=== PATIENT | male | born 1955 | race Caucasian/White ===

== ENCOUNTER 2024-07-20 09:13 | Inpatient (IN) | payer MEDICARE, SELFPAY ==
[2024-07-20] VITALS (44 sets, daily range): BP systolic 86–137; BP diastolic 45–96; PULSE 72–122; RESP 12–51; TEMP 35.8–36.8; O2SAT 86–100; BMI 34.5; BMI 34.0
--- NOTE | 2024-07-20 09:15 | EKG12_ITS ---
Test Reason : SOB Blood Pressure : / mmHG Vent. Rate : 126 BPM Atrial Rate : 000 BPM P-R Int : 000 ms QRS Dur : 092 ms QT Int : 340 ms P-R-T Axes : 000 083 043 degrees QTc Int : 492 ms NSR WITH FREQUENT PAC'S Reconfirmed by Isai Menon ([id number]), editorial cartoonist VELMA RODRIGUEZ ([id number]) on 07/25/2024 8:18:40 AM Referred By: Confirmed By:Isai Menon
[2024-07-20 09:29] LABS: Absolute Lymphocyte Count 1.43 X10^3/uL (0.83-4.51); Absolute Neutrophil Count 4.7 X10^3/uL (2.0-7.7); Basophil# 0.04 X10^3/uL; Basophil% 0.6 % (0-1); Eosinophil# 0.17 X10^3/uL; Eosinophils% 2.6 % (0-5); Hematocrit 40.8 % (40-54); Hemoglobin 13.2 g/dL (13.0-16.5); Lymphocyte # 1.43 X10^3/ul (0.83-4.51); Lymphocyte % 21.5 % (19-41); Mean Corp Hgb Conc 32.4 g/dL (32-36); Mean Corpuscular Hgb 30.4 pg (27.0-32.0); Mean Platelet Vol. 9.5 fl (6.2-12.0); Monocyte# 0.29 X10^3/uL; Monocyte% 4.4 % (0-10); NRBC Flagged by Analyzer 0 % (0-5); Neutrophil # 4.71 X10^3/uL (2.7-7.7); Neutrophil % 70.6 % (47-70); Platelet Count 220 K/mm3 (150-450); RBC Distribution Width CV 15.4 % (11.6-14.6); RBC Distribution Width SD 53.7 fl (35.1-43.9); Red Blood Count 4.34 M/mm3 (4.6-6.2); White Blood Count 6.7 K/mm3 (4.4-11.0)
--- NOTE | 2024-07-20 09:35 | RAD_ITS ---
INDICATION: chest pain EXAMINATION/TECHNIQUE: X-RAY - XR Chest 1 View COMPARISON: No relevant prior comparison study available FINDINGS: LINES/DEVICES: None. LUNGS: No consolidation, edema or effusion. No pneumothorax. MEDIASTINUM AND CARDIOVASCULAR STRUCTURES: Cardiac silhouette not enlarged. Central airways and mediastinal contour are unremarkable. BONES AND SOFT TISSUES: Unremarkable. RAD/Chest 1 View (Portable) IMPRESSION: No radiographic evidence of acute cardiopulmonary disease. Electronically Signed: David Coughlin MD at 10:09 EDT ,
--- NOTE | 2024-07-20 09:35 | EX.ED.DYSGE1 ---
HPI History of Present Illness Chief Complaint: Syncope Detail of Chief Complaint: Shortness of breath for 2 weeks. No cardiac history. Informant: patient Onset/Context/Timing Onset: Weeks Context: Gradual Onset Timing: Continuous Current Severity: Mild Maximum Severity: Moderate Narrative Narrative: 69-year-old male history of hypertension diabetes. States he had his Ozempic dose increased couple weeks ago. Since that time has been short of breath. Denies any chest pain or cardiac history. Denies any vomiting, diarrhea or fever. No cough. No recent travel or surgery. No history of DVT or PE. No recent hospitalization. Prior similar symptoms: No Recent Illness/Hospitalization: No PFSH PFS Medical History Tonsillectomy planned Enlarged prostate High cholesterol Smoker Diabetes Home Medications ?Medication ?Instructions ?Recorded ?Last Taken ?Type finasteride 5 mg tablet 5 mg PO DAILY 07/20/24 07/20/24 History glipizide 5 mg tablet 5 mg PO BID 07/20/24 07/19/24 History lisinopril 2.5 mg tablet 2.5 mg PO DAILY 07/20/24 07/20/24 History pioglitazone 45 mg tablet 45 mg PO DAILY 07/20/24 07/19/24 History semaglutide 2 mg/dose (8 mg/3 mL) 2 mg subcut QWEEK 07/20/24 07/14/24 History subcutaneous pen injector (Ozempic) simvastatin 40 mg tablet 40 mg PO QPM cholesterol 07/20/24 07/19/24 History tamsulosin 0.4 mg capsule 0.4 mg PO QHS 07/20/24 07/19/24 History Allergy/AdvReac Type Severity Reaction Status Date / Time No Known Allergies Allergy Verified 07/20/24 09:24 Social History Smoking Status: Current every day smoker tobacco type: cigarettes ROS ROS ED ROS Narrative Shortness of breath. Constitutional Constitutional ED: Denies chills or fever(s) Eyes Eyes: Denies blurry vision ENT ENT ED: Denies ear pain Cardiovascular Cardiovascular: Denies chest pain Respiratory/Chest Respiratory/Chest: Reports dyspnea and dyspnea on exertion; Denies cough Gastrointestinal Gastrointestinal: Denies abdominal pain, constipation, diarrhea, melena, nausea or vomiting Genitourinary Genitourinary ED: Denies dysuria or hematuria Musculoskeletal Musculoskeletal: Denies arthralgias or back pain Integumentary Denies abscess Neurologic Neurologic: Denies headache(s) Psychiatric Psychiatric: Denies anxiety Endocrine Endocrinology: Denies cold intolerance Hematologic/Lymphatic Hematologic/Lymphatic: Reports none Allergic/Immunologic Allergic/Immunologic ED: Denies mouth swelling, tongue swelling or urticaria EXAM Physical Exam Narrative Exam Narrative: 69-year-old male vital signs tachycardic 120s with A-fib RVR in the monitor. Pulse ox 95%. Afebrile. Blood pressure stable. H EENT exam unremarkable. Neck nontender. No JVD. Diminished breath sounds in the bases bilaterally. Heart A-fib RVR 125. Chest wall nontender. Abdomen soft nontender. Moving all 4 extremities. Normal strength. He does have trace edema both lower extremities. States that is new. Back nontender. Neurologically is awake and alert answering questions following commands. No focal motor deficits. Const Vital Signs: 07/20/24 09:14 07/20/24 09:18 07/20/24 09:18 Temperature 97.7 F L 97.7 F L Temperature Source Temporal Temporal Pulse Rate 118 H 122 H Respiratory Rate 32 H 24 H Respiratory Effort Respiratory Pattern Blood Pressure 125/96 H 125/96 H Blood Pressure Mean 105 105 Pulse Ox 95 95 Oxygen Delivery Method Room Air Room Air Room Air 07/20/24 09:46 Temperature Temperature Source Pulse Rate Respiratory Rate Respiratory Effort Short of Breath Labored Respiratory Pattern Tachypnea Blood Pressure Blood Pressure Mean Pulse Ox Oxygen Delivery Method Positive well nourished and well developed; Negative for cachectic, contractures or unkempt General Appearance ED: well developed; Negative for unkempt, cachectic, contractures, cyanotic, diaphoretic, NAD or pallor Nutritional Appearance: Negative for cachectic HEENT Reports moist mucous membranes Negative for trauma or tenderness Eyes EOMs intact bilaterally General Eye ED: Negative for pale conjunctiva or scleral icterus Neck no lymphadenopathy, supple and no JVD General: Negative for tenderness Chest Wall inspection of chest normal and palpation of chest normal Resp normal respiratory effort and No clear to auscultation bilaterally Resp Narrative: Diminished in the bases. Cardio Negative for regular rate or regular rhythm Rhythm: abnormal rhythm irregularly irregular and other (A-fib RVR rate about 125.) GI normal to inspection, nondistended, normoactive bowel sounds, non-tender, non-distended and no masses Back/Spine no CVA tenderness General Back: Negative for CVA tenderness Cervical Spine: Negative for cervical spine tenderness Thoracic Spine / Upper Back: Negative for thoracic spinal tenderness or paraspinal muscle tenderness Lumbar Spine / Lower Back: Negative for lumbar spinal tenderness Extremity Negative for normal to inspection General Extremety ED: Yes edema; Negative for tenderness General Extremity: edema Neuro oriented x3 and CN's II-XII intact bilaterally Sensorium / Orientation: alert; Negative for orientation impaired, lethargic or stuporous Motor Exam: strength 5/5 throughout; Negative for general weakness Psych mental status grossly normal Appearance: Negative for unkempt Attitude: No agitated Mood & Affect: Negative for depressed, anxious or tearful Skin no rashes or lesions noted and no wounds General Skin Exam: Negative for jaundice or pallor Lesions: No lesion noted Rashes: No rashes noted MDM MDM MDM Narrative Medical decision making narrative: 69-year-old male with what appears to be A-fib RVR which is new on exam. Discussed trace edema in his lower extremities. Rule out CHF. Undergo cardiac workup. Received Cardizem will need to be admitted. Repeat exam at 10:24 AM no significant change. He was initially given a dose of Cardizem without any significant change. We placed on a Cardizem drip. Currently he is in A-fib RVR between 115 and 130. Patient I discussed his test results and diagnosis he is willing to be admitted to the hospital. Hospitalist on page. Lab Data Attestation: I reviewed the patient's lab results. Lab results narrative: CBC shows white count 6 H&H 13 and 40. Platelets 220. PT/INR 13 and 1. PTT of 30. Electrolytes 135. Gap 6. BUN and creatinine 24 and 1.89. Glucose 168. Troponin 51. TSH 1.3. Chest x-ray has chronic changes. Vascular congestion. Labs: Laboratory Results - last 24 hr 07/20/24 09:20 WBC 6.7 RBC 4.34 L Hgb 13.2 Hct 40.8 MCV 94.0 MCH 30.4 MCHC 32.4 RDW Std Deviation 53.7 H RDW Coeff of Louise 15.4 H Plt Count 220 MPV 9.5 Immature Gran % (Auto) 0.300 Neut % (Auto) 70.6 H Lymph % (Auto) 21.5 Conway % (Auto) 4.4 Eos % (Auto) 2.6 Baso % (Auto) 0.6 Absolute Neuts (auto) 4.7 Absolute Lymphs (auto) 1.43 Nucleated RBC % 0 PT 13.5 INR 1.0 APTT 30.6 Sodium 135 L Potassium 3.7 Chloride 104 Carbon Dioxide 25.0 Anion Gap 6 BUN 24 H Creatinine 1.89 H Estim Creat Clear Calc 40.39 Est GFR (MDRD) Af Amer 45 L Est GFR (MDRD) Non-Af 38 L BUN/Creatinine Ratio 12.7 Glucose 168 H Calcium 9.1 Troponin I High Sens 51 TSH 1.300 Radiography Chest X-Ray - ED: 1 View, Read by ED Physician, Read by Radiologist, Heart, Mediastinum, Bony Structures, Chronic Changes and CHF Diagnostic Testing: Clinical Impression(s) from Imaging Studies Chest X-Ray 07/20/24 09:35 IMPRESSION: No radiographic evidence of acute cardiopulmonary disease. Electronically Signed: David Coughlin MD at 10:09 EDT , Chest x-ray, portable, single view interpreted both by myself and radiologist. Patient has normal cardiac silhouette. He does have vascular congestion is could be early pulmonary edema from his A-fib RVR. No infiltrate. No effusion. Rhythm Strip Rhythm Strip: A-fib Rate: 126 Ectopy: None EKG Initial EKG: Attestation: I personally reviewed and interpreted this EKG as follows: Interpretation: Atrial Fibrillation Comments: Atrial fibrillation with rapid ventricular rate of 126. No acute signs of ND or ischemia. Discharge Plan Dx/Rx/DC Orders Clinical Impression: Acute dyspnea, Atrial fibrillation with rapid ventricular response, Mild peripheral edema, New onset a-fib Disposition Disposition: Acute Care [facility]
[2024-07-20] MEDS: dilTIAZem 25 MG/5 ML Vial 20 MG IV BOLUS (09:44)
[2024-07-20 09:52] LABS: Anion Gap 6 (5-15); BUN 24 mg/dL (7-18); BUN/Creat Ratio 12.7 RATIO (10-20); Calcium,Total 9.1 mg/dL (8.5-10.1); Chloride 104 mmol/L (98-107); Creatinine, Serum 1.89 mg/dL (0.70-1.30); EST Glomerular Filtration Rate 38 mL/min (>60); Est Glom Filt Rate - Afr Amer 45 mL/min (>60); Estimated Creatinine Clearance 40.39 ml/min; Glucose 168 mg/dL (74-106); Potassium 3.7 mmol/L (3.5-5.1); Sodium Level 135 mmol/L (136-145); Troponin-I HS 51 pg/mL (3.0-78.0)
[2024-07-20 09:54] LABS: Partial Thromboplast Time 30.6 Seconds (24.1-36.2); Prothrombin Time (Protime)PT. 13.5 SECONDS (11.7-14.9)
[2024-07-20] MEDS: Diltiazem 125 MG in Dextrose 5%-Water (100mL Bag) 100 ML IV (10:43)
--- NOTE | 2024-07-20 12:17 | EKG12_ITS ---
Test Reason : AFIB Blood Pressure : / mmHG Vent. Rate : 101 BPM Atrial Rate : 000 BPM P-R Int : 000 ms QRS Dur : 092 ms QT Int : 368 ms P-R-T Axes : 000 092 083 degrees QTc Int : 477 ms NSR WITH FREQUENT PAC'S Reconfirmed by Isai Menon ([id number]), subeditor VELMA RODRIGUEZ ([id number]) on 07/25/2024 8:19:16 AM Referred By: Confirmed By:Isai Menon
--- NOTE | 2024-07-20 12:17 | ECHOD_ITS ---
Reason For Study: ATRIAL FIBRILLATION Procedure This was a 2D Doppler, Color Flow transthoracic echocardiogram. The study was technically difficult. Contrast injection was performed. Exam performed portable in patient room. Left Ventricle Normal LV size. The left ventricular ejection fraction is 30 %. No regional wall motion abnormalities noted. There is moderate global hypokinesis of the left ventricle. Right Ventricle Normal RV size. Normal systolic function. Atria Normal left atrium. Normal right atrium. Mitral Valve Normal mitral valve. Tricuspid Valve Normal tricuspid valve. Aortic Valve Trisinus/trileaflet aortic valve. Moderate focal aortic valve calcification. Peak aortic valve gradient 44 mmHg. Mean aortic valve gradient 28 mmHg. Moderate aortic stenosis. Pulmonic Valve The pulmonic valve is not well visualized. Great Vessels Normal aortic root. The pulmonary artery is normal size. The inferior vena cava is dilated. Pericardium/Pleural No pericardial effusion. Medication Diluted definity 2ml given slow IV push to enhance endocardial definition. MMode/2D Measurements & Calculations LVIDd: 5.5 cm IVSd: 1.2 cm LVOT diam: 2.1 cm LVIDs: 4.5 cm LVPWd: 1.1 cm RVDd: 4.0 cm FS: 18.7 % LVOT area: 3.6 cm2 asc Aorta Diam: 3.2 cm LAV(MOD-bp): 59.9 ml LVAd ap4: 46.5 cm2 LAV(MOD-bp) Indexed: 28.6 ml/m2 LVLd ap4: 9.5 cm LAV(MOD-sp2): 65.6 ml EDV(MOD-sp4): 183.4 ml LAV(MOD-sp4): 51.6 ml EDV(sp4-el): 193.5 ml LVAs ap4: 37.8 cm2 LVLs ap4: 8.8 cm ESV(MOD-sp4): 132.9 ml ESV(sp4-el): 138.8 ml EF(MOD-sp4): 27.5 % EF(sp4-el): 28.3 % LVAd ap2: 50.6 cm2 SV(MOD-sp4): 50.5 ml SV(MOD-sp2): 84.0 ml LVLd ap2: 9.6 cm EDV(MOD-sp2): 219.9 ml EDV(sp2-el): 225.7 ml LVAs ap2: 38.5 cm2 LVLs ap2: 8.8 cm ESV(MOD-sp2): 136.0 ml ESV(sp2-el): 143.0 ml EF(MOD-sp2): 38.2 % SV(sp4-el): 54.7 ml Ao sinus diam: 3.[address] Junction: 2.8 cm LA dimension(2D): 4.1 cm LA A4 area: 19.0 cm2 RA A4 area: 16.2 cm2 TAPSE: 1.7 cm Time Measurements MV dec time: 0.16 sec Doppler Measurements & Calculations MV E max daniel: 125.7 cm/sec Lat Peak E' Daniel: 10.2 cm/sec Med Peak E' Daniel: 5.0 cm/sec E/E' lat: 12.3 E/E' med: 25.1 MV V2 max: 125.3 cm/sec Ao V2 max: 332.0 cm/sec LV V1 max: 86.3 cm/sec MV max P.4 mmHg Ao max P.4 mmHg LV V1 max P.0 mmHg MV V2 mean: 75.0 cm/sec Ao V2 mean: 256.1 cm/sec LV V1 mean P.7 mmHg MV mean P.7 mmHg Ao mean P.1 mmHg LV V1 mean: 63.3 cm/sec MV V2 VTI: 36.5 cm Ao V2 VTI: 70.6 cm LV V1 VTI: 17.6 cm MVA(VTI): 1.7 cm2 AV (velocity ratio): 0.25 [place](I,D): 0.90 cm2 [place](V,D): 0.94 cm2 SV(LVOT): 63.7 ml PA V2 max: 84.0 cm/sec PA max PG (full): 1.4 mmHg ECHO/Echo Complete W/ Contrast Interpretation Summary The left ventricular ejection fraction is 30 %. Normal LV size. There is moderate global hypokinesis of the left ventricle. Mean aortic valve gradient 28 mmHg. Moderate aortic stenosis. Contrast injection was performed. Ordering Physician: Tucker Cowan Performed By: Lucy Graves RDCS
[2024-07-20 13:35] LABS: Troponin-I HS 53 pg/mL (3.0-78.0)
[2024-07-20] MEDS: Insulin Lispro 100 UNIT/ML INSULN.PEN SC ×2 (13:51→17:14)
[2024-07-20] MEDS: Metoprolol Tartrate 50 MG Tablet PO (13:52)
[2024-07-20] MEDS: HEPARIN/D5w 25,000 UNITS 25,000 UNITS/250 ML IV.SOLN. 14 UNITS CONT INF (13:53)
[2024-07-20] MEDS: Heparin Injection (Vial) 5,000 UNIT/ML VIAL 7500 UNIT IV (14:02)
[2024-07-20 14:31] LABS: Bedside Glucose 164 mg/dL (74-106)
--- NOTE | 2024-07-20 14:31 | HP.PCM.HOS_ITS ---
HPI - General General Date of Admission: 07/20/24 Date of Service: 07/20/24 Chief Complaint: Shortness of breath HPI Narrative KITA CARTY, is a 69 M who presents with a 2-week history of shortness of breath. Had increased his Ozempic at that time and had noticed that he has become more short of breath. He presented to the emergency room was noted to be in atrial fibrillation with RVR. EKG confirmed A-fib with RVR. Patient received bolus of diltiazem 20 mg and then started on diltiazem drip. Patient has never had atrial fibrillation before. [facility] Medical History Tonsillectomy planned Enlarged prostate High cholesterol Smoker Diabetes Home Medications ?Medication ?Instructions ?Recorded ?Last Taken ?Type finasteride 5 mg tablet 5 mg PO DAILY 07/20/24 07/20/24 History glipizide 5 mg tablet 5 mg PO BID 07/20/24 07/19/24 History lisinopril 2.5 mg tablet 2.5 mg PO DAILY 07/20/24 07/20/24 History pioglitazone 45 mg tablet 45 mg PO DAILY 07/20/24 07/19/24 History semaglutide 2 mg/dose (8 mg/3 mL) 2 mg subcut QWEEK 07/20/24 07/14/24 History subcutaneous pen injector (Ozempic) simvastatin 40 mg tablet 40 mg PO QPM cholesterol 07/20/24 07/19/24 History tamsulosin 0.4 mg capsule 0.4 mg PO QHS 07/20/24 07/19/24 History Allergy/AdvReac Type Severity Reaction Status Date / Time No Known Allergies Allergy Verified 07/20/24 09:24 Family History (Updated 07/20/24 @ 14:[address] 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 Vital Signs Vital Signs Vital Signs: 07/20/24 09:14 07/20/24 09:18 07/20/24 09:18 Temperature 36.5 C L 36.5 C L Temperature Source Temporal Temporal Pulse Rate 118 H 122 H Respiratory Rate 32 H 24 H Respiratory Effort Respiratory Depth Respiratory Pattern Blood Pressure 125/96 H 125/96 H Blood Pressure Mean 105 105 Blood Pressure Source Blood Pressure Position Blood Pressure Location Pulse Ox 95 95 Oxygen Delivery Method Room Air Room Air Room Air Oxygen Flow Rate (L/min) 07/20/24 09:46 07/20/24 10:18 07/20/24 10:43 Temperature 36.4 C L 36.4 C L Temperature Source Oral Oral Pulse Rate 107 H 108 H Respiratory Rate 22 H 26 H Respiratory Effort Short of Breath Labored Respiratory Depth Respiratory Pattern Tachypnea Blood Pressure 114/71 107/79 Blood Pressure Mean 85 88 Blood Pressure Source Monitor Blood Pressure Position Sitting Blood Pressure Location Left Arm Pulse Ox 94 94 Oxygen Delivery Method Room Air Room Air Oxygen Flow Rate (L/min) 07/20/24 11:09 07/20/24 11:11 07/20/24 11:20 Temperature 36.4 C L 36.4 C L 36.4 C L Temperature Source Oral Oral Pulse Rate 111 H 111 H 97 Respiratory Rate 26 H 26 H 18 Respiratory Effort Respiratory Depth Respiratory Pattern Blood Pressure 115/89 H 115/89 H 110/49 L Blood Pressure Mean 97 97 69 Blood Pressure Source Monitor Blood Pressure Position Blood Pressure Location Pulse Ox 93 93 93 Oxygen Delivery Method Room Air Room Air Oxygen Flow Rate (L/min) 07/20/24 12:29 07/20/24 12:45 07/20/24 13:00 Temperature 36.6 C Temperature Source Oral Pulse Rate 110 H 96 Respiratory Rate 28 H 25 H Respiratory Effort Short of Breath Respiratory Depth Normal Respiratory Pattern Tachypnea Blood Pressure 119/53 L 103/62 Blood Pressure Mean 75 75 Blood Pressure Source Monitor Blood Pressure Position Semi-Fowlers Semi-Fowlers Blood Pressure Location Left Forearm Right Arm Pulse Ox 86 87 Oxygen Delivery Method Room Air Room Air Room Air Oxygen Flow Rate (L/min) 07/20/24 13:15 07/20/24 13:30 07/20/24 13:35 Temperature Temperature Source Pulse Rate 91 98 Respiratory Rate 19 H 32 H Respiratory Effort Respiratory Depth Respiratory Pattern Blood Pressure 104/57 L 109/53 L Blood Pressure Mean 72 71 Blood Pressure Source Monitor Monitor Blood Pressure Position Semi-Fowlers Semi-Fowlers Blood Pressure Location Right Arm Right Arm Pulse Ox 88 90 87 Oxygen Delivery Method Nasal Cannula Nasal Cannula Nasal Cannula Oxygen Flow Rate (L/min) 2 3 3 07/20/24 13:49 07/20/24 13:52 07/20/24 13:56 Temperature Temperature Source Pulse Rate 109 H Respiratory Rate 22 H Respiratory Effort Respiratory Depth Respiratory Pattern Blood Pressure Blood Pressure Mean Blood Pressure Source Blood Pressure Position Blood Pressure Location Pulse Ox 92 89 Oxygen Delivery Method Nasal Cannula Nasal Cannula Oxygen Flow Rate (L/min) 4 5 07/20/24 14:00 Temperature Temperature Source Pulse Rate 96 Respiratory Rate 31 H Respiratory Effort Respiratory Depth Respiratory Pattern Blood Pressure 105/45 L Blood Pressure Mean 65 Blood Pressure Source Monitor Blood Pressure Position Semi-Fowlers Blood Pressure Location Right Arm Pulse Ox 88 Oxygen Delivery Method Nasal Cannula Oxygen Flow Rate (L/min) 5 Weight Weight: 98.7 kg Body Mass Index (BMI) 34.0 Physical Exam Const alert and no apparent distress HEENT head/scalp atraumatic Eyes Eyes Narrative: No icterus Neck no lymphadenopathy Neck Narrative: No thyromegaly Resp normal respiratory effort, no retractions, no use of accessory muscles and clear to auscultation bilaterally Cardio Cardio Narrative: Irregularly irregular GI normal to inspection, nondistended, normoactive bowel sounds, soft to palpation, non-tender and non-distended Extremity normal to inspection and full ROM Neuro moves all extremities and no focal motor deficits Sensorium / Orientation: awake and alert Psych affect normal Results Lab / Micro Data Attestation: I reviewed the patient's lab results. 07/20/24 09:20 07/20/24 09:20 Labs: Laboratory Results - last 24 hr 07/20/24 09:20: WBC 6.7, RBC 4.34 L, Hgb 13.2, Hct 40.8, MCV 94.0, MCH 30.4, MCHC 32.4, RDW Std Deviation 53.7 H, RDW Coeff of Louise 15.4 H, Plt Count 220, MPV 9.5, Immature Gran % (Auto) 0.300, Neut % (Auto) 70.6 H, Lymph % (Auto) 21.5, Coffey % (Auto) 4.4, Eos % (Auto) 2.6, Baso % (Auto) 0.6, Absolute Neuts (auto) 4.7, Absolute Lymphs (auto) 1.43, Nucleated RBC % 0, PT 13.5, INR 1.0, APTT 30.6, Sodium 135 L, Potassium 3.7, Chloride 104, Carbon Dioxide 25.0, Anion Gap 6, BUN 24 H, Creatinine 1.89 H, Estim Creat Clear Calc 40.39, Est GFR (MDRD) Af Amer 45 L, Est GFR (MDRD) Non-Af 38 L, BUN/Creatinine Ratio 12.7, Glucose 168 H, Calcium 9.1, Troponin I High Sens 51, TSH 1.300 07/20/24 13:03: Troponin I High Sens 53 Rhythm Strip Rhythm Strip: A-fib Rate: 126 Ectopy: None EKG Initial EKG: Attestation: I personally reviewed and interpreted this EKG as follows: Prior EKG tracings: available for review EKG Rhythm Intrepretation: Atrial Fibrillation Imaging Radiology Impression Chest X-Ray 07/20/24 09:35 IMPRESSION: No radiographic evidence of acute cardiopulmonary disease. Electronically Signed: David Coughlin MD at 10:09 EDT , Assessment & Plan Assessment/Plan (1) New onset a-fib: PLAN: Atrial fibrillation with RVR. New diagnosis of atrial fibrillation. Unknown time of onset but may have precipitated to couple weeks ago when his symptoms first began with shortness of breath. Patient was started on diltiazem drip in the emergency room. Will continue for now. Additionally we will start him on metoprolol tartrate 50 mg twice daily. His heart rate can be controlled, we can discontinue the diltiazem drip. [id number] 2. Will initiate heparin drip for now. Patient does have what may be chronic kidney disease so hold off on enoxaparin at this time. PLAN: Plan Chronic conditions * CKD 3: No prior baseline available. Will monitor for now. * Diabetes mellitus type 2: Hold Ozempic for now. Check an A1c. Sliding scale insulin. Continue glipizide and pioglitazone. * BPH: Continue tamsulosin and finasteride * Hyperlipidemia: Continue with simvastatin * Tobacco abuse: Smokes 2 packs/day. Patient advised that if he requires a patch, to inform us and then we can order it for him. VTE prophylaxis: Not indicated as patient is anticoagulated CODE STATUS: Addressed with the patient. Patient wishes to be full code. Charges/Coding Visit Charges Inpatient E&M: 47559 Init Hosp L3
[2024-07-20 15:51] LABS: Hemoglobin A1c 6.7 % (3.8-5.6)
[2024-07-20 16:17] LABS: Troponin-I HS 59 pg/mL (3.0-78.0)
[2024-07-20] MEDS: glipiZIDE 5 MG Tablet PO (17:15)
[2024-07-20 17:35] LABS: Bedside Glucose 152 mg/dL (74-106)
--- NOTE | 2024-07-20 17:56 | EKG12_ITS ---
Test Reason : SOB Blood Pressure : / mmHG Vent. Rate : 082 BPM Atrial Rate : 000 BPM P-R Int : 000 ms QRS Dur : 090 ms QT Int : 408 ms P-R-T Axes : 000 080 091 degrees QTc Int : 476 ms NSR WITH FREQUENT PAC'S Reconfirmed by Isai Menon ([id number]), editor managing director VELMA RODRIGUEZ ([id number]) on 07/25/2024 8:21:22 AM Referred By: HAYLEE Confirmed By:Isai Menon
[2024-07-20 20:37] LABS: Partial Thromboplast Time 76.7 Seconds (24.1-36.2)
--- NOTE | 2024-07-20 20:52 | SDCEKG_ITS ---
Test Reason : RYTHM CHANGE Blood Pressure : / mmHG Vent. Rate : 079 BPM Atrial Rate : 000 BPM P-R Int : 000 ms QRS Dur : 092 ms QT Int : 406 ms P-R-T Axes : 000 077 128 degrees QTc Int : 465 ms Normal sinus rhythm with frequent PAC's and occasional abberrent conduction Nonspecific T wave abnormality Prolonged QT Abnormal ECG When compared with ECG of 20-JUL-2024 14:02, MANUAL COMPARISON REQUIRED, DATA IS UNCONFIRMED Confirmed by Isai Menon ([id number]), news assignment editor SAVANNAH DE LA PAZ ([id number]) on 07/22/2024 1:35:00 PM Referred By: HANS Confirmed By:Isai Menon
--- NOTE | 2024-07-20 20:53 | RAD_ITS ---
STUDY: X-RAY CHEST REASON FOR EXAM: Male, 69 years old. increased shortness of breath TECHNIQUE: Single AP portable view of the chest. COMPARISON: 07/20/2024 FINDINGS: The lungs are clear and expanded. There is no demonstrated pleural abnormality. Normal size heart. Normal mediastinum and che. Normal visualized pulmonary arteries. Normal visualized aortic arch and descending thoracic aorta. Normal visualized thoracic spine. Normal visualized ribs, clavicles, and shoulders. There is no demonstrated abnormality of the visualized soft tissue structures of the upper abdomen. RAD/Chest 1 View (Portable) IMPRESSION: Normal x-ray examination of the chest. Electronically Signed: Ramsey Vines MD at 21:57 EDT ,
[2024-07-20 21:36] LABS: Allen Test Positive; Base Excess -5 mmol/L (-2 to +2); Bicarbonate 19.9 mmol/L (22-26); Blood Gas Specimen Type ART; Mode Not entered; O2 Delivery Device BiPAP; PO2 76 mmHG (75-100); SITE R Radial; SO2 95 % (95-99); Total Carbon Dioxide 21 mmol/L; pCO2 33.5 mmHg (35-45); pH 7.38 (7.35-7.45)
[2024-07-20 21:57] LABS: Bedside Glucose 177 mg/dL (74-106)
[2024-07-20 22:15] LABS: BNP,B-Type NATRIURETIC PEPTIDE 686.9 pg/mL (0-100)
[2024-07-20] MEDS: Digoxin 250 MCG/ML Ampul IV (22:44)
[2024-07-21] VITALS (13 sets, daily range): BP systolic 102–132; BP diastolic 55–98; PULSE 71–93; RESP 12–26; TEMP 35.8–36.8; O2SAT 95–100
[2024-07-21] MEDS: Furosemide 40 MG/4 ML Vial IV (00:32)
[2024-07-21] MEDS: 0.9% Saline Lock 10 ML Syringe IV (00:32)
[2024-07-21 03:42] LABS: Anion Gap 6 (5-15); BUN 28 mg/dL (7-18); BUN/Creat Ratio 14.6 RATIO (10-20); Calcium,Total 8.8 mg/dL (8.5-10.1); Chloride 106 mmol/L (98-107); Creatinine, Serum 1.92 mg/dL (0.70-1.30); EST Glomerular Filtration Rate 37 mL/min (>60); Est Glom Filt Rate - Afr Amer 45 mL/min (>60); Glucose 128 mg/dL (74-106); Potassium 4.1 mmol/L (3.5-5.1); Sodium Level 136 mmol/L (136-145)
[2024-07-21] MEDS: HEPARIN/D5w 25,000 UNITS 25,000 UNITS/250 ML IV.SOLN. 14 UNITS CONT INF ×2 (06:13→22:38)
[2024-07-21 06:28] LABS: Bedside Glucose 99 mg/dL (74-106)
--- NOTE | 2024-07-21 08:32 | PN.HOSP_ITS ---
Reason for Visit Reason for Visit: Diagnoses Unspecified atrial fibrillation (07/20/24) Subjective Subjective No chest pain. No SOB. Objective Data Objective Data Vital Signs: Vital Signs Temp Pulse Resp BP Pulse Ox O2 Del Method O2 Flow Rate 36.4 C L 86 18 119/60 100 Bi-pap 6 07/21/24 06:00 07/21/24 06:00 07/21/24 06:00 07/21/24 06:00 07/21/24 06:00 07/21/24 06:00 07/20/24 20:34 FiO2 40 07/21/24 06:00 Oxygen Flow Rate (L/min) 6 Oxygen Delivery Method Bi-pap Weight: 98.7 kg Body Mass Index (BMI) 34.0 Intake & Output: Intake and Output for Last 24 Hours 07/19/24 07/20/24 07/21/24 23:59 23:59 23:59 Intake Total 1040.60 / 1040.60 126.7 / 126.7 Output Total 400 / 575 1425 / 1425 Balance 640.60 / 465.60 -1298.3 / -1298.3 Lab / Micro Data 07/20/24 09:20 07/21/24 03:17 Labs: Laboratory Results - last 24 hr 07/20/24 09:20: WBC 6.7, RBC 4.34 L, Hgb 13.2, Hct 40.8, MCV 94.0, MCH 30.4, MCHC 32.4, RDW Std Deviation 53.7 H, RDW Coeff of Louise 15.4 H, Plt Count 220, MPV 9.5, Immature Gran % (Auto) 0.300, Neut % (Auto) 70.6 H, Lymph % (Auto) 21.5, Merrick % (Auto) 4.4, Eos % (Auto) 2.6, Baso % (Auto) 0.6, Absolute Neuts (auto) 4.7, Absolute Lymphs (auto) 1.43, Nucleated RBC % 0, PT 13.5, INR 1.0, APTT 30.6, Sodium 135 L, Potassium 3.7, Chloride 104, Carbon Dioxide 25.0, Anion Gap 6, BUN 24 H, Creatinine 1.89 H, Estim Creat Clear Calc 40.39, Est GFR (MDRD) Af Amer 45 L, Est GFR (MDRD) Non-Af 38 L, BUN/Creatinine Ratio 12.7, Glucose 168 H, Hemoglobin A1c 6.7 H, Calcium 9.1, Troponin I High Sens 51, TSH 1.300 07/20/24 13:03: Troponin I High Sens 53 07/20/24 13:34: POC Glucose 164 H 07/20/24 15:35: Troponin I High Sens 59 07/20/24 17:11: POC Glucose 152 H 07/20/24 20:11: APTT 76.7 H 07/20/24 20:49: POC Glucose 177 H 07/20/24 21:38: B-Natriuretic Peptide 686.9 H 07/21/24 03:17: APTT 68.0 H, Sodium 136, Potassium 4.1, Chloride 106, Carbon Dioxide 24.0, Anion Gap 6, BUN 28 H, Creatinine 1.92 H, Estim Creat Clear Calc 39.50, Est GFR (MDRD) Af Amer 45 L, Est GFR (MDRD) Non-Af 37 L, BUN/Creatinine Ratio 14.6, Glucose 128 H, Calcium 8.8 07/21/24 06:07: POC Glucose 99 ABG Data ABG results: ABG 07/20/24 21:31 Specimen Type ART Sample Site R Radial pH 7.38 Bicarbonate Actual 19.9 L Total CO2 21 Base Excess -5 L O2 Saturation 95 O2 % 40.0 ABG pCO2 33.5 L ABG pO2 76 Sebastián Test Positive O2 Delivery Device BiPAP Vent Mode Not entered Radiography Diagnostic Testing: Radiology Impression Chest X-Ray 07/20/24 09:35 IMPRESSION: No radiographic evidence of acute cardiopulmonary disease. Electronically Signed: David Coughlin MD at 10:09 EDT , Chest X-Ray 07/20/24 20:53 IMPRESSION: Normal x-ray examination of the chest. Electronically Signed: Ramsey Vines MD at 21:57 EDT , Rhythm Strip Rhythm Strip: A-fib Rate: 126 Ectopy: None Physical Exam Const alert and no apparent distress HEENT head/scalp atraumatic and moist oral mucous membranes Resp normal respiratory effort, no retractions, no use of accessory muscles and clear to auscultation bilaterally Cardio regular rate, regular rhythm, S1 normal heart sound and S2 normal heart sound GI normal to inspection, nondistended, normoactive bowel sounds, soft to palpation, non-tender and non-distended Extremity normal to inspection, full ROM and no clubbing, cyanosis or edema Neuro Sensorium / Orientation: awake and alert Assessment & Plan Assessment/Plan (1) New onset a-fib: PLAN: Atrial fibrillation with RVR. New diagnosis of atrial fibrillation. Unknown time of onset but may have precipitated to couple weeks ago when his symptoms first began with shortness of breath. Patient was started on diltiazem drip in the emergency room. Additionally we will start him on metoprolol tartrate 50 mg twice daily. [id number] 2. Will initiate heparin drip for now. Patient does have what may be chronic kidney disease so hold off on enoxaparin at this time. Diltiazem gtt discontinued. PLAN: Plan Chronic conditions * CKD 3: No prior baseline available. Will monitor for now. * Diabetes mellitus type 2: Hold Ozempic for now. Check an A1c. Sliding scale insulin. Continue glipizide and pioglitazone. * BPH: Continue tamsulosin and finasteride * Hyperlipidemia: Continue with simvastatin * Tobacco abuse: Smokes 2 packs/day. Patient advised that if he requires a patch, to inform us and then we can order it for him. VTE prophylaxis: Not indicated as patient is anticoagulated CODE STATUS: Addressed with the patient. Patient wishes to be full code. Disposition: pending echocardiogram. If unremarkable, could be discharged with outpt cardiology followup. Though if significantly reduced, may consider inpt cardiology evaluation. Charges/Coding Visit Charges Inpatient E&M: 99995 Subs Hosp L2
[2024-07-21] MEDS: Metoprolol Tartrate 50 MG Tablet PO ×2 (09:47→21:04)
[2024-07-21] MEDS: Finasteride 5 MG Tablet PO (09:47)
[2024-07-21 09:53] LABS: Partial Thromboplast Time 74.8 Seconds (24.1-36.2)
[2024-07-21] MEDS: Pioglitazone Hydrochloride 45 MG Tablet PO (11:46)
[2024-07-21 12:07] LABS: Bedside Glucose 138 mg/dL (74-106)
[2024-07-21] MEDS: glipiZIDE 5 MG Tablet PO (16:44)
[2024-07-21 17:12] LABS: Bedside Glucose 142 mg/dL (74-106)
--- NOTE | 2024-07-21 18:43 | NURSING ---
After being assisted to BSC by RECRUITMENT ASSISTANT pt c/o feeling SOB. SpO2 92% on 2L, RR 39, HR 120. Placed pt on bipap 22/07 @40%. HR down to 95, RR 29, SpO2 98% on bipap. Pt stated he is starting to feel less SOB. Encouraged pt to keep bipap on for a while and with sleep/naps.
[2024-07-21] MEDS: Tamsulosin HCl 0.4 MG Capsule PO (21:03)
[2024-07-21] MEDS: Atorvastatin Calcium 20 MG Tablet PO (21:03)
[2024-07-21 21:33] LABS: Bedside Glucose 138 mg/dL (74-106)
[2024-07-22] VITALS (9 sets, daily range): BP systolic 95–114; BP diastolic 58–70; PULSE 78–102; RESP 12–28; TEMP 36.2–37.1; O2SAT 96–98
[2024-07-22] MEDS: Albumin Human 25% (100 mL) 25 GM/100 ML BAG IV (03:33)
[2024-07-22 06:59] LABS: Partial Thromboplast Time 38.1 Seconds (24.1-36.2)
[2024-07-22] MEDS: 0.9% Saline Lock 10 ML Syringe IV (07:18)
[2024-07-22] MEDS: Heparin Injection (Vial) 5,000 UNIT/ML VIAL IV (07:18)
[2024-07-22 07:56] LABS: Anion Gap 8 (5-15); BUN 27 mg/dL (7-18); BUN/Creat Ratio 16.8 RATIO (10-20); Chloride 106 mmol/L (98-107); Creatinine, Serum 1.61 mg/dL (0.70-1.30); EST Glomerular Filtration Rate 45 mL/min (>60); Est Glom Filt Rate - Afr Amer 55 mL/min (>60); Estimated Creatinine Clearance 47.11 ml/min; Glucose 94 mg/dL (74-106); Potassium 4.4 mmol/L (3.5-5.1); Sodium Level 136 mmol/L (136-145)
[2024-07-22 08:51] LABS: Bedside Glucose 104 mg/dL (74-106)
[2024-07-22] MEDS: Metoprolol Tartrate 50 MG Tablet PO (09:13)
[2024-07-22] MEDS: glipiZIDE 5 MG Tablet PO ×2 (09:13→17:12)
[2024-07-22] MEDS: Pioglitazone Hydrochloride 45 MG Tablet PO (09:13)
[2024-07-22] MEDS: Finasteride 5 MG Tablet PO (09:13)
--- NOTE | 2024-07-22 09:58 | CT_ITS ---
STUDY: CTA CHEST REASON FOR EXAM: Male, 69 years old. shortness of breath RADIATION DOSAGE (If Supplied By Facility): CTDIvol = ( 14.66 ) mGy, DLP = ( 555.84 ) mGycm TECHNIQUE: The examination was performed with the intravenous administration of IV 100mL Isovue-370. Post-processing of the angiographic images was performed, with multiplanar reformation and 3D reconstruction. Individualized dose optimization techniques were used for this CT. COMPARISON: Chest x-ray 07/20/2024 FINDINGS: Normal enhancement of the main pulmonary artery and right and left pulmonary arteries. Normal enhancement of the bilateral peripheral pulmonary arteries. There is no demonstrated pulmonary embolism. There is prominence of the main pulmonary arteries without peripheral pulmonary vascular congestion, suggesting pulmonary hypertension. Normal thoracic aorta and visualized great vessels. There is no demonstrated aortic dissection. There is cardiomegaly. Normal mediastinum. Normal hilar regions. Normal visualized trachea and bronchi. The lungs are well expanded. Normal pulmonary parenchyma. Small bilateral pleural effusions with bibasilar atelectasis. Normal chest wall structures. Normal osseous structures. Normal visualized upper abdomen. CT/CTA Chest W/WO Contrast IMPRESSION: No CT evidence of pulmonary embolism. Suspect pulmonary arterial hypertension. Cardiomegaly. Small bilateral pleural effusions with bibasilar atelectasis. Electronically Signed: Ramsey Vines MD at 10:59 EDT ,
--- NOTE | 2024-07-22 10:38 | PN_ITS ---
Subjective Subjective Patient seen and examined. He still complained of shortness of breath. Per his nurse, he became very short of breath last night after getting up, and became tachycardic also, requiring BIPAP for his worsening shortness of breath. He is on 2L of oxygen today, but remains mildly tachycardic. He was taken off BIPAP in the early hours of this morning. Objective Data Objective Data Vital Signs: Vital Signs Temp Pulse Resp BP Pulse Ox O2 Del Method O2 Flow Rate 98.7 F 102 H 22 H 99/70 96 Nasal Cannula 2 07/22/24 08:56 07/22/24 09:13 07/22/24 08:56 07/22/24 08:56 07/22/24 08:56 07/22/24 08:56 07/22/24 08:56 FiO2 40 07/22/24 02:25 Oxygen Flow Rate (L/min) 2 Oxygen Delivery Method Nasal Cannula Weight: 217 lb 9.54 oz Body Mass Index (BMI) 34.0 Intake & Output: Intake and Output for Last 24 Hours 07/20/24 07/21/24 07/22/24 23:59 23:59 23:59 Intake Total 1040.60 / 1040.60 1846.53 / 1846.53 252.53 / 252.53 Output Total 400 / 575 2775 / 3150 775 / 775 Balance 640.60 / 465.60 -928.47 / -1303.47 -522.47 / -522.47 Lab / Micro Data 07/20/24 09:20 07/22/24 05:42 Labs: Laboratory Results - last 24 hr 07/21/24 11:44: POC Glucose 138 H 07/21/24 16:40: POC Glucose 142 H 07/21/24 21:01: POC Glucose 138 H 07/22/24 05:42: Sodium 136, Potassium 4.4, Chloride 106, Carbon Dioxide 23.0, Anion Gap 8, BUN 27 H, Creatinine 1.61 H, Estim Creat Clear Calc 47.11, Est GFR (MDRD) Af Amer 55 L, Est GFR (MDRD) Non-Af 45 L, BUN/Creatinine Ratio 16.8, Glucose 94, Calcium 9.0 07/22/24 05:53: APTT 38.1 H 07/22/24 06:22: POC Glucose 104 Rhythm Strip Rhythm Strip: A-fib Rate: 126 Ectopy: None Physical Exam Const alert and oriented x3 Constitutional Narrative: lethargic General Appearance: cooperative HEENT normocephalic, head/scalp atraumatic and moist oral mucous membranes Eyes PERRL and EOMs intact bilaterally Neck no lymphadenopathy, supple and no JVD Lymph Lymphatic: no lymphadenopathy noted and no lymphedema noted Resp Resp Narrative: moderately diminished breath sounds bilaterally, bilateral few crackles. Mildly tachypneic. On 2L of oxygen by nasal canula Cardio S1 normal heart sound, S2 normal heart sound and no murmurs Cardio Narrative: afib, tachycardic GI normal to inspection, nondistended, normoactive bowel sounds, soft to palpation, non-tender and non-distended Extremity normal capillary refill, no clubbing, cyanosis or edema and no calf tenderness General Extremity: no tenderness to palpation of joints or extremities Skin General Skin Exam: no breakdown Neuro CN's II-XII intact bilaterally, no focal motor deficits, no sensory deficits noted and deep tendon reflexes 2+ bilaterally Motor Exam: strength 5/5 throughout and general weakness Psych thought process normal and cooperative Mood & Affect: flat affect Assessment & Plan Assessment/Plan (1) New onset a-fib: (2) Atrial fibrillation with rapid ventricular response: PLAN: Plan #New onset afib * still poorly rate controlled. Is tachycardic, with HR at 102 * he is on 2L of oxygen. Became tachypneic and tachycardic yesterday when he got up to go to the bathroom. * required BIPAP overnight, but now on 2L of oxygen. Still tachycardic and tachypneic * was started on cardizem drip, but now on PO metoprolol. HR still not very well controlled * on heparin drip * BNP was elevated; patient however not diuresed. THis could be contributing to his continuing shortness of breath * of note, no D dimer was done. 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 * Troponins were not elevated. * will diurese with IV lasix 40mg bid. MOnitor intake and output * 2D echo ordered for today. * Depending on the results of the 2D echo in the CT, will switch to p.o. Eliquis * #Hypoxia * in the setting of new onset afib. On 2L of oxygen. Required BIPAP overnight. * 2D echo ordered and pending * BNP was elevated on admission at >600; will commence diureses today with IV lasix 40mg bid to help with fluid overload * breathing treatment with bronchodilators * titrate oxygen to maintain sats >90% * #Type 2 diabetes mellitus * On pioglitazone and semaglutide. Insulin sliding scale. Accu-Cheks ACHS. #BPH: On tamsulosin #Hyperlipidemia: On statin DVT prophylaxis: Not indicated as patient currently on heparin drip. Charges/Coding Visit Charges Inpatient E&M: 35421 Subs Hosp L3
--- NOTE | 2024-07-22 11:02 | CASEMGMT ---
RN TARAN Assessment Face to Face with patient for initial transition planning/care coordination assessment. RN TARAN introduced self and role at [facility], pt voices understanding. Pt is A&Ox4 and is resting comfortably in bed and is calm. Care providers, pharmacy, and demographics verified. 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 Pt states that he Has been doing work over here for years. Pt lives alone in a single story home with a flat entrance. ADLs/IADLs: Ind Transportation: Self. Pt states that his truck is currently in [place], [place]. Pt states that he may have some contacts/ friends that will be able to help with transportation at time of DC. If not, [facility] staff may need to provide assistance. DME: Working blood glucose monitor and sufficient supplies. Pt is currently requiring additional oxygen. This RN CM discussed DME company options with the pt as he lives in [place]. Pt states that he would prefer [employer] if he qualifies. This RN CM verified that there is a local [employer] branch regarding his home address. HHC/SNF: States HH in [place] x 1-2 years ago. Denies SNF Hx Pt?s goal: Home Plan: Home. Pt denies further needs moving forward. CM to follow for oxygen needs as well as transportation needs at time of DC. Report given to CLIN NURSE CM. Ashley Amaya RN, CM
[2024-07-22] MEDS: Furosemide 40 MG/4 ML Vial IV (11:20)
[2024-07-22 11:42] LABS: Bedside Glucose 147 mg/dL (74-106)
[2024-07-22 14:06] LABS: Partial Thromboplast Time 60.9 Seconds (24.1-36.2)
--- NOTE | 2024-07-22 15:05 | NURSING ---
Echo in progress
[2024-07-22] MEDS: HEPARIN/D5w 25,000 UNITS 25,000 UNITS/250 ML IV.SOLN. 16 UNITS CONT INF (15:27)
--- NOTE | 2024-07-22 15:41 | CHAPLAIN ---
Type of Pastoral Visit _x__ Initial Visit ___ Follow-up Visit ___ On-call Visit ___ General Patient Visit ___ Spiritual Assessment ___ Family Conference ___ Bereavement ___ Rapid Response ___ Code Blue ___ Other (describe below) Pastoral Care Referral From _x__ Patient ___ Family ___ Nurse ___ Physician ___ Defective Cigarette Slitter ___ Master Mechanic ___ Other (describe below) Sacrament/Intervention _x__ Active listening ___ Anointing ___ Yazidi ___ Bereavement ___ Communion _x__ Jagruti exploration ___ _x__ Life review _x__ Prayer ___ Reconciliation ___ Sacrament of Sick _x__ Supportive presence ___ Wedding ___ Other (describe below) Pastoral Comments 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
[2024-07-22 17:34] LABS: Bedside Glucose 149 mg/dL (74-106)
--- NOTE | 2024-07-22 18:13 | CON.PCM.CA_ITS ---
Assessment & Plan Assessment/Plan (1) Acute dyspnea: PLAN: The patient's acute dyspnea is probably multifactorial related to his underlying lung disease from tobacco exposure, LV dysfunction probably related to valvular heart disease, and his aortic stenosis which is moderate by gradient criteria. The patient does appear to be congested and heart failure and recommend continued diuresis with monitoring his renal function closely. 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 He should be given smoking cessation and we will go over that with him in detail. (3) High cholesterol: PLAN: Patient is on simvastatin 40 mg daily. His target LDL cholesterol should be less than 70 given his diabetes and right carotid bruit. (4) Diabetes: QUALIFIERS: Diabetes mellitus type: type 2 Diabetes mellitus nursing home insulin use: without superintendent terminal use Diabetes mellitus complication status: without complication Qualified Code(s): E11.9 - Type 2 diabetes mellitus without complications PLAN: Patient is aggressively treated for his diabetes this is being managed by the primary service. (5) Aortic valve stenosis: QUALIFIERS: Cardiac valve disease etiology: nonrheumatic Q ualified Code(s): I35.0 - Nonrheumatic aortic (valve) stenosis PLAN: The patient has at least moderate aortic stenosis the gradients may be higher if his LV function was improved. Currently his peak gradient is 44 and a mean gradient of 28 but he has presented with heart failure. He denies any anginal symptoms and denies any syncope or near syncope. The patient will need to undergo right and left heart catheterization to better define his valvular heart disease and the relative significance of the aortic valve compared to his global LV systolic dysfunction. We will initiate therapy to treat his LV dysfunction by continuing his lisinopril and adding low-dose beta-donnie therapy. Will need to monitor his renal function and would not withhold spironolactone at this point in time. The patient is already on an SGLT2 inhibitor. The patient will need to be evaluated for possible aortic valve replacement pending the outcome of his catheterization. (6) Heart failure with reduced ejection fraction: PLAN: The patient's presents mentation is consistent with congestive heart failure. His heart failure with reduced ejection fraction is probably related to his valvular heart disease. However he does have significant risk factors for coronary artery disease including his diabetes smoking hypertension and family history as well as his hyperlipidemia. The patient will need to be evaluated with right and left heart catheterization prior to discharge. The patient did receive dye exposure with his CTA of his chest on presentation his creatinine was 1.6. This needs to be reevaluated in the next 24 to 48 hours. Would defer left heart catheterization until 48 hours. (7) Renal insufficiency: PLAN: Patient's GFR is 45 with a creatinine of 1.6 today. Would recommend repeating this in the next 24 hours. Would also recommend continuing his lisinopril 2.5 mg daily along with the metoprolol 25 mg twice daily for LV dysfunction. (8) Arrhythmia: QUALIFIERS: Arrhythmia type: other cardiac arrhythmia Qualified Code(s): I49.8 - Other specified cardiac arrhythmias PLAN: The patient's rhythm is consistent with an atrial probably sinus rhythm with frequent PACs with some aberrant conduction to the ventricle. This is not atrial fibrillation. The heparin can be discontinued. The patient should be maintained on an aspirin a day. PLAN: Plan 1. Reinstitute lisinopril 2.5 mg daily. 2. Aspirin 81 mg daily. 3. DC heparin. 4. Continue furosemide 40 mg daily. 5. Continue the patient's diabetic medical regimen. 6. Repeat basic metabolic panel in 24 and 48 hours. 7. Will plan on right and left heart catheterization 07/24/2024. HPI Consult Data Date of Consult: 07/22/24 HPI Narrative Reason for Consultation: LV dysfunction. HPI Narrative: KITA CARTY, is a 69 M who presents with a 2-3-week history of progressive dyspnea on exertion and shortness of breath. The patient denies any chest pain denies any syncope or near syncope. He has had progressive dyspnea on exertion and shortness of breath at rest. The patient presented to emergency department and EKG was read as atrial fibrillation with rapid ventricular response. In retrospect when the rate slowed after diltiazem the patient was in a atrial rhythm is probably sinus with frequent PACs and occasional aberrantly conducted PACs. This rhythm has persisted since he has been on the floor on the lunchroom monitor now his heart rate is in the 90 bpm range. The patient has no prior history of atrial fibrillation. He does have a history of diabetes mellitus and apparently this shortness of breath started when he started Ozempic. The patient's echocardiogram done today shows global LV systolic dysfunction ejection fraction of 30%. He has significant aortic valve disease with a peak gradient of 44 and a mean gradient of 28. His IVC is dilated he has no significant tricuspid or mitral valve disease. The patient also had a CTA which was negative for pulmonary embolus he had bilateral pleural effusions. The patient's past medical is significant for diabetes mellitus and hypertension. The patient reports he is not not seen a lab clerk. He always assumed that since his blood pressure was adequately controlled he did not need to. The patient was initially treated with BiPAP he is now on nasal cannula and resting comfortably in the recumbent position at 30 degrees in the bed. He does have some minimal conversational dyspnea. 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 [facility] Medical History (Updated 07/22/24 @ 18:[address] Isai Menon MD) Tonsillectomy planned Enlarged prostate High cholesterol Smoker Diabetes Home Medications ?Medication ?Instructions ?Recorded ?Last Taken ?Type finasteride 5 mg tablet 5 mg PO DAILY 07/20/24 07/20/24 History glipizide 5 mg tablet 5 mg PO BID 07/20/24 07/19/24 History lisinopril 2.5 mg tablet 2.5 mg PO DAILY 07/20/24 07/20/24 History pioglitazone 45 mg tablet 45 mg PO DAILY 07/20/24 07/19/24 History semaglutide 2 mg/dose (8 mg/3 mL) 2 mg subcut QWEEK 07/20/24 07/14/24 History subcutaneous pen injector (Ozempic) simvastatin 40 mg tablet 40 mg PO QPM cholesterol 07/20/24 07/19/24 History tamsulosin 0.4 mg capsule 0.4 mg PO QHS 07/20/24 07/19/24 History Allergy/AdvReac Type Severity Reaction Status Date / Time No Known Allergies Allergy Verified 07/20/24 09:24 Family History Other Heart disease Social History housing: house 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 Smoking Status: Current every day smoker tobacco type: cigarettes ROS Constitutional Constitutional: Reports as per HPI Eyes Eyes: Reports systems reviewed and no addt'l complaints, except as documented ENT HEENT: Reports systems reviewed and no addt'l complaints, except as documented Cardiovascular Cardiovascular: Reports as per HPI Respiratory/Chest Respiratory/Chest: Reports as per HPI Gastrointestinal Gastrointestinal: Reports systems reviewed and no addt'l complaints, except as documented Genitourinary Genitourinary: Reports as per HPI Musculoskeletal Musculoskeletal: Reports systems reviewed and no addt'l complaints, except as documented Integumentary Integumentary: Reports systems reviewed and no addt'l complaints, except as documented Neurologic Neurologic: Reports systems reviewed and no addt'l complaints, except as documented Psychiatric Psychiatric: Reports systems reviewed and no addt'l complaints, except as documented Endocrine Endocrinology: Reports as per HPI Hematologic/Lymphatic Hematologic/Lymphatic: Reports systems reviewed and no addt'l complaints, except as documented Allergic/Immunologic Allergic/Immunologic: Reports systems reviewed and no addt'l complaints, except as documented Physical Exam Const alert and oriented x3 HEENT normocephalic Eyes EOMs intact bilaterally Neck no JVD and no carotid bruits Neck Narrative: No JVD at 30 degrees and no bruits. Chest inspection of chest normal Resp normal respiratory effort Resp Narrative: Patient on nasal cannula. Auscultation: crackles bilateral base Cardio Rate: regular rate Rhythm: abnormal rhythm irregularly irregular Heart Sounds: S1 normal, S2 normal and murmur systolic III/ harsh holo left sternal border, right sternal border, sternal notch and neck to carotid arteries; Negative for click or gallop Bruits: carotid bruit right Peripheral Pulses: radial pulses present bilateral 2+ and dorsalis pedis pulses present bilateral diminished GI soft to palpation and no bruits Extremity no pedal edema Neuro Neuro Narrative: Alert and oriented x 3 Psych mental status grossly normal Risk Stratification Risk Stratification Applicable: No Objective Data Vital Signs: Vital Signs Temp Pulse Resp BP Pulse Ox O2 Del Method O2 Flow Rate 98.4 F 78 16 114/60 96 Nasal Cannula 2 07/22/24 14:33 07/22/24 14:33 07/22/24 14:33 07/22/24 14:33 07/22/24 14:33 07/22/24 17:52 07/22/24 11:18 FiO2 40 07/22/24 02:25 Oxygen Flow Rate (L/min) 2 Oxygen Delivery Method Nasal Cannula Weight: 217 lb 9.54 oz Body Mass Index (BMI) 34.0 Intake & Output: Intake and Output for Last 24 Hours 07/20/24 07/21/24 07/22/24 23:59 23:59 23:59 Intake Total 1040.60 / 1040.60 1846.53 / 1846.53 350.00 / 350.00 Output Total 400 / 575 2775 / 3150 2475 / 2475 Balance 640.60 / 465.60 -928.47 / -1303.47 -2125.00 / -2125.00 Lab / Micro Data Attestation: I reviewed the patient's lab results. 07/20/24 09:20 07/22/24 05:42 Labs: Laboratory Results - last 24 hr 07/21/24 21:01: POC Glucose 138 H 07/22/24 05:42: Sodium 136, Potassium 4.4, Chloride 106, Carbon Dioxide 23.0, Anion Gap 8, BUN 27 H, Creatinine 1.61 H, Estim Creat Clear Calc 47.11, Est GFR (MDRD) Af Amer 55 L, Est GFR (MDRD) Non-Af 45 L, BUN/Creatinine Ratio 16.8, Glucose 94, Calcium 9.0 07/22/24 05:53: APTT 38.1 H 07/22/24 06:22: POC Glucose 104 07/22/24 11:15: POC Glucose 147 H 07/22/24 13:29: APTT 60.9 H 07/22/24 17:09: POC Glucose 149 H Rhythm Strip Rhythm Strip: Sinus Rhythm Rate: 95 Ectopy: PAC(s) Cardiology Labs/Tests 07/22/24 05:42: Sodium 136, Potassium 4.4, Chloride 106, Carbon Dioxide 23.0, Anion Gap 8, BUN 27 H, Creatinine 1.61 H, Est GFR (MDRD) Af Amer 55 L, Est GFR (MDRD) Non-Af 45 L, BUN/Creatinine Ratio 16.8, Glucose 94, Calcium 9.0 07/22/24 05:53: APTT 38.1 H 07/22/24 13:29: APTT 60.9 H Rhythm: EKG: ECHO: Stress Test: Cardiac Cath: PCI: CT Surgery: Holter monitor: EPS: PPM: CXR: Chest CT Scan: Radiography Diagnostic Testing: Radiology Impression Echocardiogram 07/20/24 12:17 Interpretation Summary The left ventricular ejection fraction is 30 %. Normal LV size. There is moderate global hypokinesis of the left ventricle. Mean aortic valve gradient 28 mmHg. Moderate aortic stenosis. Contrast injection was performed. Ordering Physician: Tucker Cowan Performed By: Lucy Graves DR. [facility] Chest CTA 07/22/24 09:58 IMPRESSION: No CT evidence of pulmonary embolism. Suspect pulmonary arterial hypertension. Cardiomegaly. Small bilateral pleural effusions with bibasilar atelectasis. Electronically Signed: Ramsey Vines MD at 10:59 EDT , EKG Follow-up EKG: Attestation: I personally reviewed and interpreted this EKG as follows: (Normal sinus rhythm with frequent PACs with aberrancy. Nonspecific ST changes poor R wave progression)
--- NOTE | 2024-07-22 18:40 | CDU_ITS ---
Reason For Study: Rt Carotid Bruit Rt. Velocities/BP Lt. Velocities/BP Prox CCA 89.3/12.6 cm/sec. Prox CCA 107.6/19.9 cm/sec. Mid CCA 83.8/18.1 cm/sec. Mid CCA 80.2/16.3 cm/sec. Dist CCA 72.9/18.1 cm/sec. Dist CCA 107.6/18.1 cm/sec. Prox ICA 74.4/19.2 cm/sec. Prox ICA 120.4/36.3 cm/sec. Mid ICA 80.6/24.1 cm/sec. Mid ICA 98.4/19.9 cm/sec. Dist ICA 96.5/22.8 cm/sec. Dist ICA 77.2/14.6 cm/sec. Rt. ICA/CCA = 1.2. Lt. ICA/CCA = 1.5. Prox ECA 106.3/6.9 cm/sec. Prox ECA 137.9/12.9 cm/sec. Rt. Vert. 46.5/9.7 cm/sec. Lt. Vert. 46.0/20.8 cm/sec. Right Extracranial There is homogeneous, smooth atherosclerotic plaque noted in the right common carotid artery. There is heterogeneous, irregular atherosclerotic plaque noted in the right internal carotid artery. There is heterogeneous, irregular atherosclerotic plaque noted in the right external carotid artery. Antegrade flow is noted in the right vertebral artery. There is heterogeneous, irregular atherosclerotic plaque noted in the right bulb. Left Extracranial There is homogeneous, smooth atherosclerotic plaque noted in the left common carotid artery. There is heterogeneous, irregular atherosclerotic plaque noted in the left internal carotid artery. There is homogeneous, smooth atherosclerotic plaque noted in the left external carotid artery. Antegrade flow is noted in the left vertebral artery. There is heterogeneous, irregular atherosclerotic plaque noted in the left bulb. Procedure Carotid Duplex 81614. This is a Carotid Duplex examination using B-mode, color flow and specral Doppler. The exam was diagnostic. Exam performed in department. VL/Carotid Duplex Ultrasound Interpretation Summary Mild (<50%) stenosis right extracranial internal carotid. Mild (<50%) stenosis left extracranial internal carotid. Patent and antegrade vertebrals bilaterally. Ordering Physician: Isai Menon Referring Physician: N/A Performed By: Padilla Wagner RVT
[2024-07-22] MEDS: Lisinopril 2.5 MG Tablet PO (20:47)
[2024-07-22] MEDS: Metoprolol Tartrate 25 MG Tablet PO (20:47)
[2024-07-22] MEDS: Atorvastatin Calcium 20 MG Tablet PO (20:47)
[2024-07-22] MEDS: Tamsulosin HCl 0.4 MG Capsule PO (20:47)
[2024-07-23] VITALS (10 sets, daily range): BP systolic 102–115; BP diastolic 49–71; PULSE 71–83; RESP 16–20; TEMP 36.6–36.9; O2SAT 93–98
[2024-07-23 06:30] LABS: Absolute Lymphocyte Count 1.33 X10^3/uL (0.83-4.51); Basophil# 0.03 X10^3/uL; Basophil% 0.6 % (0-1); Eosinophil# 0.14 X10^3/uL; Eosinophils% 2.8 % (0-5); Hemoglobin 10.9 g/dL (13.0-16.5); Lymphocyte # 1.33 X10^3/ul (0.83-4.51); Mean Corp Hgb Conc 32.1 g/dL (32-36); Mean Corpuscular Hgb 30.2 pg (27.0-32.0); Mean Corpuscular Volume 94.2 fL (80-94); Mean Platelet Vol. 10.6 fl (6.2-12.0); Monocyte# 0.39 X10^3/uL; Monocyte% 7.9 % (0-10); NRBC Flagged by Analyzer 0 % (0-5); Neutrophil # 3.01 X10^3/uL (2.7-7.7); Neutrophil % 61.3 % (47-70); Platelet Count 194 K/mm3 (150-450); RBC Distribution Width CV 15.1 % (11.6-14.6); RBC Distribution Width SD 52.5 fl (35.1-43.9); Red Blood Count 3.61 M/mm3 (4.6-6.2); White Blood Count 4.9 K/mm3 (4.4-11.0)
[2024-07-23 06:35] LABS: Anion Gap 6 (5-15); BUN 34 mg/dL (7-18); BUN/Creat Ratio 16.1 RATIO (10-20); Calcium,Total 9.1 mg/dL (8.5-10.1); Chloride 107 mmol/L (98-107); Creatinine, Serum 2.11 mg/dL (0.70-1.30); EST Glomerular Filtration Rate 33 mL/min (>60); Est Glom Filt Rate - Afr Amer 40 mL/min (>60); Estimated Creatinine Clearance 35.94 ml/min; Glucose 75 mg/dL (74-106); Potassium 3.8 mmol/L (3.5-5.1); Sodium Level 138 mmol/L (136-145)
[2024-07-23 06:48] LABS: Bedside Glucose 83 mg/dL (74-106)
[2024-07-23] MEDS: Aspirin 81 MG TAB.CHEW PO (08:58)
[2024-07-23] MEDS: Metoprolol Tartrate 25 MG Tablet PO ×2 (08:58→20:33)
[2024-07-23] MEDS: Finasteride 5 MG Tablet PO (08:58)
[2024-07-23] MEDS: glipiZIDE 5 MG Tablet PO ×2 (08:58→15:52)
[2024-07-23 09:38] LABS: Bedside Glucose 84 mg/dL (74-106)
[2024-07-23 09:38] LABS: Bedside Glucose 85 mg/dL (74-106)
[2024-07-23] MEDS: 0.9% Normal Saline (1000mL) 1,000 ML 60 ML IV (09:45)
--- NOTE | 2024-07-23 10:43 | PN.CARD_ITS ---
Subjective Subjective The patient reports that he slept well and is breathing fine this morning resting at 30 degrees in the bed. He denies any chest pain denies any shortness of breath or PND. The patient's creatinine has continued to go up is 2.11 today. His lisinopril has been stopped. This is probably reflective of his diuresis and contrast exposure with his CTA earlier this admission. 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 I have asked him to get me the name of his physician and for his physician to get me a bottling line operator who he works with so we can make certain that he has aggressive follow-up once he is discharged. Objective Data Vital Signs: Vital Signs Temp Pulse Resp BP Pulse Ox O2 Del Method O2 Flow Rate 98.4 F 73 16 107/56 L 93 Nasal Cannula 2 07/23/24 08:44 07/23/24 08:58 07/23/24 08:44 07/23/24 08:44 07/23/24 09:03 07/23/24 09:03 07/23/24 09:03 FiO2 40 07/22/24 02:25 Oxygen Flow Rate (L/min) 2 Oxygen Delivery Method Nasal Cannula Weight: 217 lb 9.54 oz Body Mass Index (BMI) 34.0 Intake & Output: Intake and Output for Last 24 Hours 07/21/24 07/22/24 07/23/24 23:59 23:59 23:59 Intake Total 1846.53 / 1846.53 394.53 / 394.53 Output Total 2775 / 3150 2475 / 2825 475 / 475 Balance -928.47 / -1303.47 -2080.47 / -2430.47 -475 / -475 Lab / Micro Data Attestation: I reviewed the patient's lab results. 07/23/24 05:23 07/23/24 05:48 Labs: Laboratory Results - last 24 hr 07/22/24 11:15: POC Glucose 147 H 07/22/24 13:29: APTT 60.9 H 07/22/24 17:09: POC Glucose 149 H 07/22/24 20:49: POC Glucose 85 07/22/24 20:50: POC Glucose 84 07/23/24 05:23: WBC 4.9, RBC 3.61 L, Hgb 10.9 L, Hct 34.0 L, MCV 94.2 H, MCH 30.2, MCHC 32.1, RDW Std Deviation 52.5 H, RDW Coeff of Louise 15.1 H, Plt Count 194, MPV 10.6, Immature Gran % (Auto) 0.400, Neut % (Auto) 61.3, Lymph % (Auto) 27.0, Luce % (Auto) 7.9, Eos % (Auto) 2.8, Baso % (Auto) 0.6, Absolute Neuts (auto) 3.0, Absolute Lymphs (auto) 1.33, Nucleated RBC % 0 07/23/24 05:48: Sodium 138, Potassium 3.8, Chloride 107, Carbon Dioxide 25.0, Anion Gap 6, BUN 34 H, Creatinine 2.11 H, Estim Creat Clear Calc 35.94, Est GFR (MDRD) Af Amer 40 L, Est GFR (MDRD) Non-Af 33 L, BUN/Creatinine Ratio 16.1, Glucose 75, Calcium 9.1 07/23/24 06:26: POC Glucose 83 Rhythm Strip Rhythm Strip: Sinus Rhythm Rate: 85 Ectopy: PVC(s) and PAC(s) Cardiology Labs/Tests 07/22/24 13:29: APTT 60.9 H 07/23/24 05:23: WBC 4.9, RBC 3.61 L, Hgb 10.9 L, Hct 34.0 L, MCV 94.2 H, MCH 30.2, MCHC 32.1, Plt Count 194, MPV 10.6, Immature Gran % (Auto) 0.400, Neut % (Auto) 61.3, Lymph % (Auto) 27.0, Luce % (Auto) 7.9, Eos % (Auto) 2.8, Baso % (Auto) 0.6, Absolute Neuts (auto) 3.0, Nucleated RBC % 0 07/23/24 05:48: Sodium 138, Potassium 3.8, Chloride 107, Carbon Dioxide 25.0, Anion Gap 6, BUN 34 H, Creatinine 2.11 H, Est GFR (MDRD) Af Amer 40 L, Est GFR (MDRD) Non-Af 33 L, BUN/Creatinine Ratio 16.1, Glucose 75, Calcium 9.1 Rhythm: EKG: ECHO: Stress Test: Cardiac Cath: PCI: CT Surgery: Holter monitor: EPS: PPM: CXR: Chest CT Scan: Radiography Diagnostic Testing: Radiology Impression Echocardiogram 07/20/24 12:17 Interpretation Summary The left ventricular ejection fraction is 30 %. Normal LV size. There is moderate global hypokinesis of the left ventricle. Mean aortic valve gradient 28 mmHg. Moderate aortic stenosis. Contrast injection was performed. Ordering Physician: Tucker Cowan Performed By: Lucy Graves RDCS Chest CTA 07/22/24 09:58 IMPRESSION: No CT evidence of pulmonary embolism. Suspect pulmonary arterial hypertension. Cardiomegaly. Small bilateral pleural effusions with bibasilar atelectasis. Electronically Signed: Ramsey Vines MD at 10:59 EDT , Physical Exam Const alert and oriented x3 HEENT normocephalic Eyes EOMs intact bilaterally Neck no JVD Neck Narrative: Murmur radiating to the right neck versus a right carotid bruit. Chest inspection of chest normal Resp normal respiratory effort Auscultation: crackles right base Cardio Rate: regular rate Rhythm: regular rhythm Heart Sounds: S1 normal, S2 normal and murmur systolic III/ harsh left sternal border, sternal notch and neck; Negative for click or gallop Bruits: carotid bruit right Extremity no pedal edema Neuro Neuro Narrative: Alert and oriented x 3 Psych mental status grossly normal Assessment & Plan Assessment/Plan (1) Aortic valve stenosis: QUALIFIERS: Cardiac valve disease etiology: nonrheumatic Q ualified Code(s): I35.0 - Nonrheumatic aortic (valve) stenosis PLAN: Patient has at least moderate aortic stenosis by gradient criteria on his echocardiogram. However, in the face of an ejection fraction of 30% I suspect his aortic valve stenosis is closer to the severe range. The patient's troponins are negative x 2 sets at 51 and 59. He denied any chest pain on admission. He is admitting complaint was progressive dyspnea on exertion and profound shortness of breath that has resolved with aggressive diuresis. The patient is negative at least 2 L in the last 48 hours. The patient did have a CTA upon admission and his creatinine is gone from 1.6- 2.11 given him a GFR of 33 today. He is also anemic with a hemoglobin of 10.9. Given the fact the patient does not have evidence of coronary ischemia, his creatinine is rising, and he is anemic I would recommend that we defer right and left heart catheterization for his valvular heart disease and heart failure until his metabolic situation stabilizes. This will probably require deferring this until an outpatient procedure can be arranged in the next 1 to 2 weeks. 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 I have asked him to get the name of the bottling line operator who his primary care physician would refer him to in [place] and I will personally call him and dictate a summary referral note to the bottling line operator. (2) Heart failure with reduced ejection fraction: PLAN: The patient's LV dysfunction is global. He does not have signs of acute ischemic event on his presentation. He does have significant risk factors including smoking, diabetes, hypertension, and hyperlipidemia. The patient has been diuresed at least 2 L in the last 48 hours. His creatinine is rising and he is anemic. We are addressing this by discontinuing his lisinopril and switching him to a combination of hydralazine and nitrates for afterload reduction therapy. He will be maintained on his beta-donnie. Given his renal status we would avoid aldosterone antagonist therapy at this time. Once the patient's renal function is stabilized he should be able to be safely discharged to home and followed up in [place] for long-term management of his valvular heart disease. (3) Renal insufficiency: PLAN: Patient's creatinine is up to 2.11 today given him a GFR of 33. We will continue to monitor this and if held the diuretics today. His lisinopril is also been stopped and he has been treated with afterload reduction therapy starting today with hydralazine and nitrates. I would recommend we avoid further contrast exposure until his creatinine is returned back toward his baseline of 1.5?1.6. This will most likely require discharge to home and follow-up in [place] as noted above. PLAN: Plan 1. DC lisinopril. 2. Hydralazine 10 mg 3 times daily and Imdur 30 mg every morning hold for systolic blood pressure less than 100. 3. Continue to monitor creatinine per the primary service. 4. I have requested the patient get me the name of a bottling line operator through his primary care physician back in [place] so I can set up a referral for him. Charges/Coding Visit Charges Inpatient E&M: 86061 Subs Hosp L3
--- NOTE | 2024-07-23 12:57 | PCM.PROGNOTE ---
Subjective Subjective Patient seen and examined. She is he was lying comfortably in bed and had no complaints. He had an uneventful night. Review of systems otherwise negative. Cardiology reviewed him and his commending a cardiac cath. He did have CT of the chest yesterday which was negative for any evidence of PE. Creatinine has trended up to 2.11 today. Objective Data Objective Data Vital Signs: Vital Signs Temp Pulse Resp BP Pulse Ox O2 Del Method O2 Flow Rate 98.4 F 73 16 107/56 L 93 Nasal Cannula 2 07/23/24 08:44 07/23/24 08:58 07/23/24 08:44 07/23/24 08:44 07/23/24 09:03 07/23/24 10:59 07/23/24 09:03 FiO2 40 07/22/24 02:25 Oxygen Flow Rate (L/min) 2 Oxygen Delivery Method Nasal Cannula Weight: 217 lb 9.54 oz Body Mass Index (BMI) 34.0 Intake & Output: Intake and Output for Last 24 Hours 07/21/24 07/22/24 07/23/24 23:59 23:59 23:59 Intake Total 1846.53 / 1846.53 394.53 / 394.53 Output Total 2775 / 3150 2475 / 2825 475 / 475 Balance -928.47 / -1303.47 -2080.47 / -2430.47 -475 / -475 Lab / Micro Data 07/23/24 05:23 07/23/24 05:48 Labs: Laboratory Results - last 24 hr 07/22/24 13:29: APTT 60.9 H 07/22/24 17:09: POC Glucose 149 H 07/22/24 20:49: POC Glucose 85 07/22/24 20:50: POC Glucose 84 07/23/24 05:23: WBC 4.9, RBC 3.61 L, Hgb 10.9 L, Hct 34.0 L, MCV 94.2 H, MCH 30.2, MCHC 32.1, RDW Std Deviation 52.5 H, RDW Coeff of Louise 15.1 H, Plt Count 194, MPV 10.6, Immature Gran % (Auto) 0.400, Neut % (Auto) 61.3, Lymph % (Auto) 27.0, [place] % (Auto) 7.9, Eos % (Auto) 2.8, Baso % (Auto) 0.6, Absolute Neuts (auto) 3.0, Absolute Lymphs (auto) 1.33, Nucleated RBC % 0 07/23/24 05:48: Sodium 138, Potassium 3.8, Chloride 107, Carbon Dioxide 25.0, Anion Gap 6, BUN 34 H, Creatinine 2.11 H, Estim Creat Clear Calc 35.94, Est GFR (MDRD) Af Amer 40 L, Est GFR (MDRD) Non-Af 33 L, BUN/Creatinine Ratio 16.1, Glucose 75, Calcium 9.1 07/23/24 06:26: POC Glucose 83 Radiography Diagnostic Testing: Radiology Impression Echocardiogram 07/20/24 12:17 Interpretation Summary The left ventricular ejection fraction is 30 %. Normal LV size. There is moderate global hypokinesis of the left ventricle. Mean aortic valve gradient 28 mmHg. Moderate aortic stenosis. Contrast injection was performed. Ordering Physician: Tucker Cowan Performed By: uLcy Graves RDCS Rhythm Strip Rhythm Strip: Sinus Rhythm Rate: 85 Ectopy: PVC(s) and PAC(s) Physical Exam Const alert, oriented x3 and no apparent distress General Appearance: cooperative HEENT normocephalic, head/scalp atraumatic, moist oral mucous membranes and oropharynx normal Eyes PERRL and EOMs intact bilaterally Eyes Narrative: No icterus Neck no lymphadenopathy, supple and no JVD Neck Narrative: No thyromegaly Lymph Lymphatic: no lymphadenopathy noted and no lymphedema noted Resp normal respiratory effort, no retractions, no use of accessory muscles and clear to auscultation bilaterally Resp Narrative: moderately diminished breath sounds bilaterally, bilateral few crackles. Mildly tachypneic. On 2L of oxygen by nasal canula Cardio regular rate, regular rhythm, S1 normal heart sound, S2 normal heart sound and no murmurs Cardio Narrative: afib, tachycardic GI normal to inspection, nondistended, normoactive bowel sounds, soft to palpation, non-tender and non-distended Extremity normal to inspection, full ROM, normal capillary refill, no clubbing, cyanosis or edema and no calf tenderness General Extremity: no tenderness to palpation of joints or extremities Skin General Skin Exam: no breakdown Neuro CN's II-XII intact bilaterally, moves all extremities, no focal motor deficits, no sensory deficits noted and deep tendon reflexes 2+ bilaterally Sensorium / Orientation: awake and alert Motor Exam: strength 5/5 throughout and general weakness Psych thought process normal, cooperative and affect normal Mood & Affect: flat affect Assessment & Plan Assessment/Plan (1) New onset a-fib: (2) Atrial fibrillation with rapid ventricular response: PLAN: Plan #New onset afib Heart rate has improved and is now controlled. She remains on 2 L of oxygen. On p.o. metoprolol. Still on heparin drip. CT of the chest was negative for any evidence of PE. 2D echo however showed EF of 30% with global left ventricular hypokinesis. Cardiology was therefore consulted. Cardiology wants to do cardiac cath but will plan for it in the next 24 to 40 hours due to patient having received contrast with a CTA chest. #Acute heart failure with reduced ejection fraction 2D echo as above. BNP was also elevated at over 600 on admission. Patient was started on IV Lasix yesterday but this was held today due to creatinine trended upwards to 2.11. Was 1.61 yesterday. Breathing treatments bronchodilators. Titrate oxygen as needed to maintain saturation above 90%. Cardiology on board and is planning cardiac cath over the next 24 to 48 hours #Hypoxia in the setting of new onset afib. On 2L of oxygen. Required BIPAP overnight. 2D echo as above BNP was elevated on admission at >600; diet basis with Lasix stopped due to upward trending creatinine breathing treatment with bronchodilators titrate oxygen to maintain sats >90% #HOLLY on probable CKD Baseline creatinine is not known but creatinine on admission was 1.89. Creatinine was 1.61 yesterday and is up to 2.11 today. He did receive contrast and was also on Lasix and pioglitazone as well as lisinopril, which can all affect his kidneys. These have been held. Will hydrate very gently with IV fluid normal saline at 60 cc/h to help flush out the contrast. Would not be more aggressive with fluids because of his EF of 30%. If kidney function worsens, will consult nephrology. Carotid ultrasound. #Type 2 diabetes mellitus On pioglitazone and semaglutide. Insulin sliding scale. Accu-Cheks ACHS. Pioglitazone on hold due to worsening kidney function. #BPH: On tamsulosin #Hyperlipidemia: On statin DVT prophylaxis: Not indicated as patient currently on heparin drip. Charges/Coding Visit Charges Inpatient E&M: 30947 [facility] [[email or web address]] Hosp L3
--- NOTE | 2024-07-23 13:01 | US_ITS ---
STUDY: RENAL ULTRASOUND - COMPLETE REASON FOR EXAM: Male, 69 years old. kianna on CKD TECHNIQUE: Ultrasound evaluation of the kidneys was performed with real-time and static grove-scale imaging. COMPARISON: None. FINDINGS: RIGHT KIDNEY: Normal location of the right kidney, which is normal in size. The right kidney measures 11.4 x 5.5 x 4.8 cm. There is focal scarring versus lobulation of the renal cortex. The renal cortex measures 1.3 cm. There is no right renal mass or cyst. There are no right renal calculi. There is no right hydronephrosis. DISTAL RIGHT URETER: There is non-visualization of the distal right ureter. There is no demonstrated right ureterovesical junction calculus. There is no demonstrated right ureteral jet. LEFT KIDNEY: Normal location of the left kidney, which is normal in size. The left kidney measures 10.8 x 4.5 x 5.5 cm. There is focal scarring versus lobulation of the renal cortex. The renal cortex measures 1.3 cm. There is no left renal mass or cyst. There are no left renal calculi. There is no left hydronephrosis. DISTAL LEFT URETER: There is non-visualization of the distal left ureter. There is no demonstrated left ureterovesical junction calculus. There is no demonstrated left ureteral jet. BLADDER: There is a Villanueva catheter emptying the bladder. US/Kidney and Bladder IMPRESSION: No acute abnormality. Cannot exclude bilateral cortical scarring versus normal variant persistent lobulations. Electronically Signed: Monty Baldwin MD at 14:43 EDT ,
[2024-07-23] MEDS: Isosorbide Mononitrate 30 MG Tablet PO (14:02)
[2024-07-23] MEDS: hydrALAZINE 10 MG Tablet PO ×2 (14:58→20:33)
[2024-07-23 16:13] LABS: Bedside Glucose 155 mg/dL (74-106)
[2024-07-23] MEDS: Tamsulosin HCl 0.4 MG Capsule PO (20:33)
[2024-07-23] MEDS: Atorvastatin Calcium 20 MG Tablet PO (20:33)
--- NOTE | 2024-07-23 22:25 | CPS ---
Pt refused BIPAP
[2024-07-24] VITALS (9 sets, daily range): BP systolic 100–130; BP diastolic 50–82; PULSE 68–91; RESP 15–17; TEMP 36.2–36.9; O2SAT 97–100
[2024-07-24] MEDS: glipiZIDE 5 MG Tablet PO ×2 (06:13→17:45)
[2024-07-24] MEDS: hydrALAZINE 10 MG Tablet PO ×3 (06:13→20:25)
[2024-07-24 06:52] LABS: Absolute Lymphocyte Count 1.41 X10^3/uL (0.83-4.51); Absolute Neutrophil Count 2.9 X10^3/uL (2.0-7.7); Basophil# 0.03 X10^3/uL; Basophil% 0.6 % (0-1); Eosinophil# 0.21 X10^3/uL; Eosinophils% 4.3 % (0-5); Hematocrit 33.4 % (40-54); Hemoglobin 10.9 g/dL (13.0-16.5); Lymphocyte # 1.41 X10^3/ul (0.83-4.51); Mean Corp Hgb Conc 32.6 g/dL (32-36); Mean Corpuscular Hgb 30.6 pg (27.0-32.0); Mean Corpuscular Volume 93.8 fL (80-94); Mean Platelet Vol. 10.7 fl (6.2-12.0); Monocyte# 0.33 X10^3/uL; Monocyte% 6.8 % (0-10); NRBC Flagged by Analyzer 0 % (0-5); Neutrophil # 2.87 X10^3/uL (2.7-7.7); Neutrophil % 59.1 % (47-70); Platelet Count 201 K/mm3 (150-450); RBC Distribution Width CV 14.9 % (11.6-14.6); RBC Distribution Width SD 51.8 fl (35.1-43.9); Red Blood Count 3.56 M/mm3 (4.6-6.2); White Blood Count 4.9 K/mm3 (4.4-11.0)
[2024-07-24 07:22] LABS: Anion Gap 6 (5-15); BUN 37 mg/dL (7-18); BUN/Creat Ratio 17.6 RATIO (10-20); Calcium,Total 8.8 mg/dL (8.5-10.1); Chloride 110 mmol/L (98-107); EST Glomerular Filtration Rate 33 mL/min (>60); Est Glom Filt Rate - Afr Amer 40 mL/min (>60); Estimated Creatinine Clearance 36.12 ml/min; Glucose 81 mg/dL (74-106); Sodium Level 140 mmol/L (136-145)
--- NOTE | 2024-07-24 08:26 | PN.CARD_ITS ---
Subjective Subjective Patient reports he is more short of breath this morning. He did have problems with conversational dyspnea when I was talking to him. He appears restless. The patient denies any chest pain he denies any lower extremity edema or edema of his hands. Objective Data Vital Signs: Vital Signs Temp Pulse Resp BP Pulse Ox O2 Del Method O2 Flow Rate 98.1 F 88 15 130/58 H 98 Nasal Cannula 2 07/24/24 03:00 07/24/24 06:13 07/24/24 03:00 07/24/24 06:13 07/24/24 03:00 07/24/24 07:18 07/24/24 07:18 FiO2 40 07/22/24 02:25 Oxygen Flow Rate (L/min) 2 Oxygen Delivery Method Nasal Cannula Weight: 217 lb 9.54 oz Body Mass Index (BMI) 34.0 Intake & Output: Intake and Output for Last 24 Hours 07/22/24 07/23/24 07/24/24 23:59 23:59 23:59 Intake Total 394.53 / 394.53 1180 / 1180 Output Total 2475 / 2825 825 / 1225 1000 / 1000 Balance -2080.47 / -2430.47 -825 / -1105 180 / 180 Lab / Micro Data Attestation: I reviewed the patient's lab results. 07/24/24 05:49 07/24/24 05:49 Labs: Laboratory Results - last 24 hr 07/22/24 20:49: POC Glucose 85 07/22/24 20:50: POC Glucose 84 07/23/24 15:45: POC Glucose 155 H 07/24/24 05:49: WBC 4.9, RBC 3.56 L, Hgb 10.9 L, Hct 33.4 L, MCV 93.8, MCH 30.6, MCHC 32.6, RDW Std Deviation 51.8 H, RDW Coeff of Louise 14.9 H, Plt Count 201, MPV 10.7, Immature Gran % (Auto) 0.200, Neut % (Auto) 59.1, Lymph % (Auto) 29.0, [place] % (Auto) 6.8, Eos % (Auto) 4.3, Baso % (Auto) 0.6, Absolute Neuts (auto) 2.9, Absolute Lymphs (auto) 1.41, Nucleated RBC % 0, Sodium 140, Potassium 4.0, Chloride 110 H, Carbon Dioxide 24.0, Anion Gap 6, BUN 37 H, Creatinine 2.10 H, Estim Creat Clear Calc 36.12, Est GFR (MDRD) Af Amer 40 L, Est GFR (MDRD) Non-Af 33 L, BUN/Creatinine Ratio 17.6, Glucose 81, Calcium 8.8 Rhythm Strip Rhythm Strip: Sinus Rhythm Rate: 80 Ectopy: PVC(s) Cardiology Labs/Tests 07/24/24 05:49: WBC 4.9, RBC 3.56 L, Hgb 10.9 L, Hct 33.4 L, MCV 93.8, MCH 30.6, MCHC 32.6, Plt Count 201, MPV 10.7, Immature Gran % (Auto) 0.200, Neut % (Auto) 59.1, Lymph % (Auto) 29.0, [place] % (Auto) 6.8, Eos % (Auto) 4.3, Baso % (Auto) 0.6, Absolute Neuts (auto) 2.9, Nucleated RBC % 0, Sodium 140, Potassium 4.0, C hloride 110 H, Carbon Dioxide 24.0, Anion Gap 6, BUN 37 H, Creatinine 2.10 H, E st GFR (MDRD) Af Amer 40 L, Est GFR (MDRD) Non-Af 33 L, BUN/Creatinine Ratio 17.6, Glucose 81, Calcium 8.8 Rhythm: EKG: ECHO: Stress Test: Cardiac Cath: PCI: CT Surgery: Holter monitor: EPS: PPM: CXR: Chest CT Scan: Radiography Diagnostic Testing: Radiology Impression Carotid Duplex 07/22/24 18:40 Interpretation Summary Mild (<50%) stenosis right extracranial internal carotid. Mild (<50%) stenosis left extracranial internal carotid. Patent and antegrade vertebrals bilaterally. Ordering Physician: Isai Menon Referring Physician: N/A Performed By: Padilla Wagner RVT Renal Ultrasound 07/23/24 13:01 IMPRESSION: No acute abnormality. Cannot exclude bilateral cortical scarring versus normal variant persistent lobulations. Electronically Signed: Monty Baldwin MD at 14:43 EDT , Physical Exam Narrative Restless with conversational dyspnea Const alert and oriented x3 HEENT normocephalic Eyes EOMs intact bilaterally Neck no JVD Carotids: bruit Positive for right (Consistent with referred murmur) Chest inspection of chest normal Resp Auscultation: rales right base and rhonchi left lower (Significantly different from the right lung.) Cardio Rate: regular rate Rhythm: regular rhythm Heart Sounds: S1 normal, S2 normal and murmur systolic III/ harsh holo right sternal border, sternal notch and neck; Negative for click or gallop GI soft to palpation Extremity no pedal edema Neuro Neuro Narrative: Alert and oriented x 3 Psych mental status grossly normal Assessment & Plan Assessment/Plan (1) Heart failure with reduced ejection fraction: PLAN: Patient has ejection fraction of 30% on echo with moderately severe aortic stenosis. The patient now appears to be more uncomfortable than he has been in yesterday. He has conversational dyspnea. He is maintaining his O2 saturation on 2 L. His lung sounds are asymmetric with the left sounding much more congested than the right. A portable chest x-ray will be obtained. The patient will be reinstituted on Lasix 40 mg daily p.o. His renal function is stabilized creatinine is 2.0 today. I's and O's were -500 cc yesterday. (2) Aortic valve stenosis: QUALIFIERS: Cardiac valve disease etiology: nonrheumatic Q ualified Code(s): I35.0 - Nonrheumatic aortic (valve) stenosis PLAN: Patient's aortic stenosis is moderate by gradient criteria. He will need this further evaluated in the near future given his heart failure with his LV dysfunction and he is wishing to pursue this when he returns home to [place]. I did get his primary care physician's name at Dr. Ashley's phone number [phone]. I am going to call him today to try to get some follow-up set up once we get more definitive discharge plans in place. (3) Renal insufficiency: PLAN: Creatinine has stabilized at 2.0 the patient does have a history of diabetes, hypertension, he had contrast exposure do a CTA when he was first admitted and his creatinine was 1.6 that went up to 2.11 it is now stabilized at 2.0. We will continue with gentle diuresis to improve his hemodynamics his blood pressure is much better controlled today. His UZIEL inhibitor remains on hold he is tolerating hydralazine and nitrates for afterload reduction therapy. (4) Arrhythmia: QUALIFIERS: Arrhythmia type: other cardiac arrhythmia Qualified Code(s): I49.8 - Other specified cardiac arrhythmias PLAN: The patient has what appears to be an atrial rhythm with frequent PACs. It was originally read out as atrial fibrillation however this is not the case there is definite organized atrial activity. The patient does not require oral anticoagulation for this rhythm at this time. (5) Acute dyspnea: PLAN: The patient's dyspnea appears to be more impressive today than it has been. I have requested a chest x-ray and we will supplement his oxygen as indicated. Will also reintroduce Lasix now that his creatinine has stabilized. Further evaluation and treatment will be at the discretion of the primary service he does have asymmetric lung findings much more prominent on the left than the right. PLAN: Plan 1. Continue with supplemental oxygen. 2. Reinstitute Lasix 40 mg p.o. daily. 3. Continue to monitor renal status. 4. Obtain chest x-ray and further recommendations by the primary service pending the results. Charges/Coding Visit Charges Inpatient E&M: 95456 Subs Hosp L3
[2024-07-24] MEDS: Aspirin 81 MG TAB.CHEW PO (08:40)
[2024-07-24] MEDS: Isosorbide Mononitrate 30 MG Tablet PO (08:40)
[2024-07-24] MEDS: Finasteride 5 MG Tablet PO (08:41)
[2024-07-24] MEDS: Metoprolol Tartrate 25 MG Tablet PO ×2 (08:41→20:26)
[2024-07-24] MEDS: 0.9% Saline Lock 10 ML Syringe IV (08:59)
[2024-07-24] MEDS: Furosemide 40 MG/4 ML Vial IV (08:59)
--- NOTE | 2024-07-24 09:25 | RAD_ITS ---
INDICATION: Respitory distress -- Portable EXAMINATION/TECHNIQUE: X-RAY - XR Chest 1 View COMPARISON: Prior study dated: 07/20/2024 FINDINGS: LINES/DEVICES: None. LUNGS: Prominent pulmonary vasculature and interstitial markings. No focal infiltrate is seen. No evidence of pleural effusions. MEDIASTINUM AND CARDIOVASCULAR STRUCTURES: Stable cardiomediastinal silhouette. BONES AND SOFT TISSUES: Unchanged. RAD/Chest 1 View (Portable) IMPRESSION: Slightly prominent markings in the lower lungs could reflect early infiltrate/edema. Electronically Signed: David Coughlin MD at 11:28 EDT ,
--- NOTE | 2024-07-24 10:55 | PN_ITS ---
Subjective Subjective Patient seen and examined. He complains of feeling short of breath, and says he feels like he is not able to expectorate sputum. Review of systems is otherwise negative. He has remained hemodynamically stable. Objective Data Objective Data Vital Signs: Vital Signs Temp Pulse Resp BP Pulse Ox O2 Del Method O2 Flow Rate 97.6 F L 84 16 119/79 97 Nasal Cannula 2 07/24/24 09:00 07/24/24 09:00 07/24/24 09:00 07/24/24 09:00 07/24/24 09:00 07/24/24 09:00 07/24/24 09:00 FiO2 40 07/22/24 02:25 Oxygen Flow Rate (L/min) 2 Oxygen Delivery Method Nasal Cannula Weight: 217 lb 9.54 oz Body Mass Index (BMI) 34.0 Intake & Output: Intake and Output for Last 24 Hours 07/22/24 07/23/24 07/24/24 23:59 23:59 23:59 Intake Total 394.53 / 394.53 1180 / 1180 Output Total 2475 / 2825 825 / 1225 1300 / 1300 Balance -2080.47 / -2430.47 -825 / -1105 -120 / -120 Lab / Micro Data 07/24/24 05:49 07/24/24 05:49 Labs: Laboratory Results - last 24 hr 07/23/24 15:45: POC Glucose 155 H 07/24/24 05:49: WBC 4.9, RBC 3.56 L, Hgb 10.9 L, Hct 33.4 L, MCV 93.8, MCH 30.6, MCHC 32.6, RDW Std Deviation 51.8 H, RDW Coeff of Louise 14.9 H, Plt Count 201, MPV 10.7, Immature Gran % (Auto) 0.200, Neut % (Auto) 59.1, Lymph % (Auto) 29.0, [place] % (Auto) 6.8, Eos % (Auto) 4.3, Baso % (Auto) 0.6, Absolute Neuts (auto) 2.9, Absolute Lymphs (auto) 1.41, Nucleated RBC % 0, Sodium 140, Potassium 4.0, Chloride 110 H, Carbon Dioxide 24.0, Anion Gap 6, BUN 37 H, Creatinine 2.10 H, Estim Creat Clear Calc 36.12, Est GFR (MDRD) Af Amer 40 L, Est GFR (MDRD) Non-Af 33 L, BUN/Creatinine Ratio 17.6, Glucose 81, Calcium 8.8 Radiography Diagnostic Testing: Radiology Impression Carotid Duplex 07/22/24 18:40 Interpretation Summary Mild (<50%) stenosis right extracranial internal carotid. Mild (<50%) stenosis left extracranial internal carotid. Patent and antegrade vertebrals bilaterally. Ordering Physician: Isai Menon Referring Physician: N/A Performed By: Padilla Wagner, T Renal Ultrasound 07/23/24 13:01 IMPRESSION: No acute abnormality. Cannot exclude bilateral cortical scarring versus normal variant persistent lobulations. Electronically Signed: Monty Baldwin MD at 14:43 EDT , Rhythm Strip Rhythm Strip: Sinus Rhythm Rate: 80 Ectopy: PVC(s) Physical Exam Const alert, oriented x3 and no apparent distress General Appearance: cooperative HEENT normocephalic, head/scalp atraumatic, moist oral mucous membranes and oropharynx normal Eyes PERRL and EOMs intact bilaterally Eyes Narrative: No icterus Neck no lymphadenopathy, supple and no JVD Lymph Lymphatic: no lymphadenopathy noted and no lymphedema noted Resp normal respiratory effort, no retractions, no use of accessory muscles and clear to auscultation bilaterally Resp Narrative: moderately diminished breath sounds bilaterally, bilateral few crackles. Remains on 2L of oxygen by nasal canula Cardio regular rate, regular rhythm, S1 normal heart sound, S2 normal heart sound and no murmurs GI normal to inspection, nondistended, normoactive bowel sounds, soft to palpation, non-tender and non-distended Extremity normal to inspection, full ROM, normal capillary refill, no clubbing, cyanosis or edema and no calf tenderness General Extremity: no tenderness to palpation of joints or extremities Skin General Skin Exam: no breakdown Neuro CN's II-XII intact bilaterally, moves all extremities, no focal motor deficits, no sensory deficits noted and deep tendon reflexes 2+ bilaterally Sensorium / Orientation: awake and alert Motor Exam: strength 5/5 throughout and general weakness Psych thought process normal, cooperative and affect normal Mood & Affect: flat affect Assessment & Plan Assessment/Plan (1) New onset a-fib: (2) Atrial fibrillation with rapid ventricular response: PLAN: Plan #New onset afib * Heart rate has improved and is now controlled. She remains on 2 L of oxygen. * On p.o. metoprolol. Placed on eliquis today * CT of the chest was negative for any evidence of PE. 2D echo however showed EF of 30% with global left ventricular hypokinesis. * Cardiology on board. Cardiology was initially considering cardiac cath but apparently patient was to go back to [place] where he is from when he proceeded to be done. Cardiology also does not think he is fully optimized to be able to withstand the cardiac cath. * #Acute heart failure with reduced ejection fraction * 2D echo as above. BNP was also elevated at over 600 on admission. * Patient was started on IV Lasix yesterday but this was held today due to creatinine trended upwards to 2.11. Was 1.61 yesterday. * Breathing treatments bronchodilators. Titrate oxygen as needed to maintain saturation above 90%. * Plan is to optimize patient further from respiratory standpoint and would for him to be discharged follow-up with supervisor [employer] in [place] where he is from. * #Aortic valve stenosis * as per echo which showed moderate aortic valve stenosis * per cardiology, will need TAVR eventually. To follow-up with supervisor [employer] in [place] per patient's wishes. * #Hypoxia * 2D echo as above * BNP was elevated on admission at >600; * breathing treatment with bronchodilators * titrate oxygen to maintain sats >90% * Lasix resumed today. Creatinine is 2.1. * #HOLLY on probable CKD * Baseline creatinine is not known but creatinine on admission was 1.89. Creatinine was 1.61 yesterday and is up to 2.11 today. He did receive contrast and was also on Lasix and pioglitazone as well as lisinopril, which can all affect his kidneys. These have been held. * Renal ultrasound showed no acute abnormality and cannot exclude bilateral cortical scarring versus normal variant persistent lobulations * CR is now 2. I suspect patient may have underlying CKD. * * #Type 2 diabetes mellitus * On pioglitazone and semaglutide. Insulin sliding scale. Accu-Cheks ACHS. * Pioglitazone on hold due to worsening kidney function. Sergio permanently discontinue pioglitazone due to impaired kidney function and heart failure #BPH: On tamsulosin #Hyperlipidemia: On statin DVT prophylaxis: will place on eliquis for afib. Disposition: For discharge back to [place] once he is medically stable. Charges/Coding Visit Charges Inpatient E&M: 40244 Subs Hosp L2
--- NOTE | 2024-07-24 12:12 | CHAPLAIN ---
Type of Pastoral Visit ___ Initial Visit _x__ Follow-up Visit ___ On-call Visit ___ General Patient Visit ___ Spiritual Assessment ___ Family Conference ___ Bereavement ___ Rapid Response ___ Code Blue ___ Other (describe below) Pastoral Care Referral From _x__ Patient ___ Family ___ Nurse ___ Physician ___ Stock Car Driver ___ Boat Cleaner ___ Other (describe below) Sacrament/Intervention _x__ Active listening ___ Anointing ___ Orthodox ___ Bereavement ___ Communion ___ Jagruti exploration ___ ___ Life review _x__ Prayer ___ Reconciliation ___ Sacrament of Sick _x__ Supportive presence ___ Wedding ___ Other (describe below) Pastoral Comments follow up visit to this patient who had asked for the same; pt has some frustration due to not seeing any improvement yet ; [place] is from out of state and family has not been able to see him; pt says he understands that this is out of his hands but admittedly wanting to get home and get well; pt is offered presence, something he might want to occupy time but he declined; pt agreed that a prayer would be helpful and that was given
[2024-07-24] MEDS: APIXABAN 5 MG TABLET PO ×2 (12:16→20:26)
[2024-07-24] MEDS: Tamsulosin HCl 0.4 MG Capsule PO (20:25)
[2024-07-24] MEDS: Atorvastatin Calcium 20 MG Tablet PO (20:25)
[2024-07-25] VITALS (8 sets, daily range): BP systolic 94–126; BP diastolic 64–65; PULSE 81–90; RESP 16–18; TEMP 36–36.3; O2SAT 94–95
[2024-07-25] MEDS: hydrALAZINE 10 MG Tablet PO ×2 (05:45→12:25)
[2024-07-25] MEDS: glipiZIDE 5 MG Tablet PO (05:46)
[2024-07-25 06:16] LABS: Absolute Lymphocyte Count 1.71 X10^3/uL (0.83-4.51); Absolute Neutrophil Count 3.1 X10^3/uL (2.0-7.7); Basophil# 0.04 X10^3/uL; Basophil% 0.8 % (0-1); Eosinophil# 0.22 X10^3/uL; Eosinophils% 4.1 % (0-5); Hematocrit 35.8 % (40-54); Hemoglobin 11.6 g/dL (13.0-16.5); Lymphocyte # 1.71 X10^3/ul (0.83-4.51); Lymphocyte % 32.1 % (19-41); Mean Corp Hgb Conc 32.4 g/dL (32-36); Mean Corpuscular Hgb 30.2 pg (27.0-32.0); Mean Corpuscular Volume 93.2 fL (80-94); Mean Platelet Vol. 10.1 fl (6.2-12.0); Monocyte% 5.6 % (0-10); NRBC Flagged by Analyzer 0 % (0-5); Neutrophil # 3.05 X10^3/uL (2.7-7.7); Neutrophil % 57.2 % (47-70); Platelet Count 233 K/mm3 (150-450); RBC Distribution Width CV 14.7 % (11.6-14.6); RBC Distribution Width SD 50.6 fl (35.1-43.9); Red Blood Count 3.84 M/mm3 (4.6-6.2); White Blood Count 5.3 K/mm3 (4.4-11.0)
[2024-07-25 06:43] LABS: Anion Gap 6 (5-15); BUN 38 mg/dL (7-18); BUN/Creat Ratio 20.7 RATIO (10-20); Chloride 109 mmol/L (98-107); Creatinine, Serum 1.84 mg/dL (0.70-1.30); EST Glomerular Filtration Rate 39 mL/min (>60); Est Glom Filt Rate - Afr Amer 47 mL/min (>60); Estimated Creatinine Clearance 41.22 ml/min; Glucose 86 mg/dL (74-106); Potassium 3.8 mmol/L (3.5-5.1); Sodium Level 141 mmol/L (136-145)
--- NOTE | 2024-07-25 07:32 | PN.CARD_ITS ---
Subjective Subjective Patient is resting comfortably no come position in bed today he is not short of breath he has been on room air over the night. I did make contact with Dr. Ashley the patient's primary care physician in [place] his phone number is [phone]. He gave him information to get the patient followed up in his office and he will be seen at [facility] cardiology in [facility] when he gets back to [place]. He was also instructed to report to [facility] emergency department should he need acute care prior to his appointments. I am going to copy this note and provided to the patient to take with him and also fax it to the primary care physician. Objective Data Vital Signs: Vital Signs Temp Pulse Resp BP Pulse Ox O2 Del Method O2 Flow Rate 97.4 F L 84 18 94/64 94 Room Air 2 07/25/24 03:00 07/25/24 05:45 07/25/24 03:05 07/25/24 03:00 07/25/24 03:05 07/25/24 03:05 07/24/24 21:00 FiO2 40 07/22/24 02:25 Oxygen Flow Rate (L/min) 2 Oxygen Delivery Method Room Air Weight: 217 lb 9.54 oz Body Mass Index (BMI) 34.0 Intake & Output: Intake and Output for Last 24 Hours 07/23/24 07/24/24 07/25/24 23:59 23:59 23:59 Intake Total 1180 / 1420 360 / 360 Output Total 825 / 1225 2700 / 3400 1425 / 1425 Balance -825 / -1105 -1520 / -1980 -1065 / -1065 Lab / Micro Data Attestation: I reviewed the patient's lab results. 07/25/24 05:38 07/25/24 05:38 Labs: Laboratory Results - last 24 hr 07/25/24 05:38: WBC 5.3, RBC 3.84 L, Hgb 11.6 L, Hct 35.8 L, MCV 93.2, MCH 30.2, MCHC 32.4, RDW Std Deviation 50.6 H, RDW Coeff of Louise 14.7 H, Plt Count 233, MPV 10.1, Immature Gran % (Auto) 0.200, Neut % (Auto) 57.2, Lymph % (Auto) 32.1, [place] % (Auto) 5.6, Eos % (Auto) 4.1, Baso % (Auto) 0.8, Absolute Neuts (auto) 3.1, Absolute Lymphs (auto) 1.71, Nucleated RBC % 0, Sodium 141, Potassium 3.8, Chloride 109 H, Carbon Dioxide 25.0, Anion Gap 6, BUN 38 H, Creatinine 1.84 H, Estim Creat Clear Calc 41.22, Est GFR (MDRD) Af Amer 47 L, Est GFR (MDRD) Non-Af 39 L, BUN/Creatinine Ratio 20.7 H, Glucose 86, Calcium 9.0 Rhythm Strip Rhythm Strip: Sinus Rhythm Rate: 80 Ectopy: PVC(s) and PAC(s) Cardiology Labs/Tests 07/25/24 05:38: WBC 5.3, RBC 3.84 L, Hgb 11.6 L, Hct 35.8 L, MCV 93.2, MCH 30.2, MCHC 32.4, Plt Count 233, MPV 10.1, Immature Gran % (Auto) 0.200, Neut % (Auto) 57.2, Lymph % (Auto) 32.1, [place] % (Auto) 5.6, Eos % (Auto) 4.1, Baso % (Auto) 0.8, Absolute Neuts (auto) 3.1, Nucleated RBC % 0, Sodium 141, Potassium 3.8, C hloride 109 H, Carbon Dioxide 25.0, Anion Gap 6, BUN 38 H, Creatinine 1.84 H, E st GFR (MDRD) Af Amer 47 L, Est GFR (MDRD) Non-Af 39 L, BUN/Creatinine Ratio 20.7 H, Glucose 86, Calcium 9.0 Rhythm: EKG: ECHO: Stress Test: Cardiac Cath: PCI: CT Surgery: Holter monitor: EPS: PPM: CXR: Chest CT Scan: Radiography Diagnostic Testing: Radiology Impression Chest X-Ray 07/24/24 09:25 IMPRESSION: Slightly prominent markings in the lower lungs could reflect early infiltrate/edema. Electronically Signed: David Coughlin MD at 11:28 EDT , Physical Exam Const alert and oriented x3 HEENT normocephalic Eyes EOMs intact bilaterally Neck full ROM and no JVD Chest inspection of chest normal Resp normal respiratory effort Auscultation: crackles bilateral Cardio Rate: regular rate Rhythm: abnormal rhythm irregularly irregular Heart Sounds: S1 normal, S2 normal and murmur systolic III/ harsh left sternal border, sternal notch and neck; Negative for click or gallop Extremity no pedal edema Neuro Neuro Narrative: Alert and oriented x 3 Psych mental status grossly normal Assessment & Plan Assessment/Plan (1) Arrhythmia: QUALIFIERS: Arrhythmia type: other cardiac arrhythmia Qualified Code(s): I49.8 - Other specified cardiac arrhythmias PLAN: The patient's rhythm has not been atrial fibrillation since his admission. There is no documentation of atrial fibrillation on any of his EKGs. They were misinterpreted originally this is sinus rhythm with frequent PACs with some apparent conduction or multifocal atrial tachycardia. He does not need oral anticoagulation long-term for this current arrhythmia. The patient should be maintained on aspirin 81 mg daily. Will discontinue Eliquis the patient should be up and ambulatory. (2) Renal insufficiency: PLAN: Patient's renal function continues to improve his creatinine is down to 1.8 today. He should be continued on his current medical therapy of combination of hydralazine and nitrates with Lasix 40 mg daily for his volume control. His lisinopril should be withheld given his recent acute renal insufficiency. (3) Heart failure with reduced ejection fraction: PLAN: Patient is tolerating his guideline directed medical therapy with metoprolol 25 mg twice daily, hydralazine 10 mg 3 times daily with Imdur 30 mg every morning. He is also on furosemide 40 mg daily. The patient's heart failure is most probably was secondary to his valvular heart disease with his aortic stenosis. However, he does have every risk factor for coronary artery disease. He had no evidence of ischemic damage on this admission. His high-sensitivity troponins were negative x 2 sets. The patient will require left heart catheterization and right heart catheterization in the near future as an ambulatory elective procedure to evaluate his heart failure and severity of his aortic stenosis in anticipation of potential aortic valve intervention. I did discuss this with Dr. Ashley his primary care physician the patient was instructed to report to [facility] in [place] should he deteriorate prior to being seen by Dr. Ashley and he will be referred to [facility] cardiology by Dr. Ashley. I am going to copy this report and fax it to Dr. Ashley's office along with his EKGs and echocardiogram. I will also give a copy of the material to the patient to take with him as he travels back to [place]. (4) Aortic valve stenosis: QUALIFIERS: Cardiac valve disease etiology: nonrheumatic Q ualified Code(s): I35.0 - Nonrheumatic aortic (valve) stenosis PLAN: The patient's gradients across his aortic valve were peak of 44 and a mean of 28 in the face of global LV systolic dysfunction ejection fraction of 30%. This very well could represent critical low outflow aortic valve stenosis. The patient did present with congestive heart failure and responded to diuresis. During that diuresis he developed acute renal insufficiency with his creatinine peaking at 2.1 and dropping back to 1.8 today. He also had contrast exposure with a CT scan that was performed on admission. This showed no evidence of pulmonary emboli or aortic dissection. The patient should be followed up urgently when he returns to [place] for further evaluation and possible intervention on his valvular heart disease. I feel the patient will require right and left heart catheterization in the near future to better define his treatment options. PLAN: Plan 1. Wean patient to room air oxygen and maintain O2 saturation. 2. Increase ambulation and consider discharge to home today or tomorrow. 3. Discontinue Eliquis the patient has not had atrial fibrillation this rhythm is always been sinus with frequent PACs or multifocal atrial tachycardia which do not require oral anticoagulation therapy. 4. I have copied this note and his EKGs and echo report for the patient. 5. The patient should follow-up with Dr. Ashley by calling his office for an appointment at [phone] as soon as he returns home to [place], [place]. 6. Should he deteriorate with increasing shortness of breath that is highly likely this would be related to congestive heart failure he should report to [facility] in [facility]. The patient understands this as I explained to him in detail. Charges/Coding Visit Charges Inpatient E&M: 49131 Subs Hosp L3
[2024-07-25] MEDS: Aspirin 81 MG TAB.CHEW PO (08:35)
[2024-07-25] MEDS: Isosorbide Mononitrate 30 MG Tablet PO (08:37)
[2024-07-25] MEDS: Metoprolol Tartrate 25 MG Tablet PO (08:38)
[2024-07-25] MEDS: Finasteride 5 MG Tablet PO (08:38)
[2024-07-25] MEDS: Furosemide 40 MG Tablet PO (08:38)
--- NOTE | 2024-07-25 11:28 | DCINST_ITS ---
Discharge Instructions Diet Discharge Diet: Low fat / Low cholesterol Activity Discharge Activity: Return to Normal Activity Weight Bearing Status: Weight bearing as tolerated Dressing / Incision Call your doctor if you observe: Fever of 101 or Higher, Shortness of breath, Dizziness, Swelling in the ankles and Chest pain Follow Up Care Test Results: Test results from this visit will be discussed in further detail at your follow- up appointment, if applicable. Discharge Plan Admission Admit Date/Time: 07/20/24 10:35 Primary Reason for Your Visit: afib, heart failure Attending Provider: Ofelia Larkin Primary Care Provider: ASHOK VARELA Consulting Providers: Tucker Cowan; Ofelia Larkin; John Nassar; Isai Menon Instructions Patient Instructions: AFib Preventing Stroke, ED AFIB Discharge Orders/Prescriptions Prescriptions: New furosemide 40 mg Tablet 40 mg PO DAILY Qty: 30 2RF hydralazine 10 mg Tablet 10 mg PO TID Qty: 90 2RF isosorbide mononitrate 30 mg Tablet Extended Release 24 Hr 30 mg PO DAILY Qty: 30 2RF aspirin 81 mg Tablet,Chewable 81 mg PO BREAKFAST Qty: 30 1RF Eliquis 5 mg tablet 5 mg PO BID Qty: 60 2RF metoprolol tartrate 25 mg Tablet 25 mg PO BID Qty: 60 2RF Continued simvastatin 40 mg tablet 40 mg PO QPM tamsulosin 0.4 mg capsule 0.4 mg PO QHS lisinopril 2.5 mg tablet 2.5 mg PO DAILY finasteride 5 mg tablet 5 mg PO DAILY Ozempic 2 mg/dose (8 mg/3 mL) pen injector 2 mg subcut QWEEK glipizide 5 mg tablet 5 mg PO BID Discontinued pioglitazone 45 mg tablet 45 mg PO DAILY Referrals / Follow Up: ASHOK VARELA [Other] - Within 1 Week Disposition Disposition (needs filled in before D/C Order can be placed): Home, Self Care
--- NOTE | 2024-07-25 11:29 | DS.PCM_ITS ---
Providers Date of Admission: 07/20/24 Date of Discharge: 07/25/24 Primary Care Physician: ASHOK VARELA Consultations 07/22/24 17:05 Consult: Cardiology Routine Consulting Provider: Isai Menon Reason for Consult: cardiomyopathy with EF of 30%, new onset afib EMERGENT Consult: No MD Notified: Yes Date Notified: 07/22/24 Time Notified: 17:06 Method of Notification: Text Reason For Visit: AFIB RVR Diagnosis Discharge Diagnosis (1) Arrhythmia: Status: Acute Code(s): I49.9 - Cardiac arrhythmia, unspecified Qualifiers: Arrhythmia type: other cardiac arrhythmia Qualified Code(s): I49.8 - Other specified cardiac arrhythmias (2) Renal insufficiency: Status: Acute Code(s): N28.9 - Disorder of kidney and ureter, unspecified (3) Heart failure with reduced ejection fraction: Status: Acute Code(s): I50.20 - Unspecified systolic (congestive) heart failure (4) Aortic valve stenosis: Status: Acute Code(s): I35.0 - Nonrheumatic aortic (valve) stenosis Qualifiers: Cardiac valve disease etiology: nonrheumatic Qualified Code(s): I35.0 - Nonrheumatic aortic (valve) stenosis Plan #New onset afib * Heart rate has improved and is now controlled. She remains on 2 L of oxygen. * On p.o. metoprolol. Placed on eliquis today * CT of the chest was negative for any evidence of PE. 2D echo however showed EF of 30% with global left ventricular hypokinesis. * Cardiology on board. Cardiology was initially considering cardiac cath but apparently patient was to go back to [place] where he is from when he proceeded to be done. Cardiology also does not think he is fully optimized to be able to withstand the cardiac cath. * #Acute heart failure with reduced ejection fraction * 2D echo as above. BNP was also elevated at over 600 on admission. * Patient was started on IV Lasix yesterday but this was held today due to creatinine trended upwards to 2.11. Was 1.61 yesterday. * Breathing treatments bronchodilators. Titrate oxygen as needed to maintain saturation above 90%. * Plan is to optimize patient further from respiratory standpoint and would for him to be discharged follow-up with administrative assistant data entry in [place] where he is from. * #Aortic valve stenosis * as per echo which showed moderate aortic valve stenosis * per cardiology, will need TAVR eventually. To follow-up with administrative assistant data entry in [place] per patient's wishes. * #Hypoxia * 2D echo as above * BNP was elevated on admission at >600; * breathing treatment with bronchodilators * titrate oxygen to maintain sats >90% * Lasix resumed today. Creatinine is 2.1. * #HOLLY on probable CKD * Baseline creatinine is not known but creatinine on admission was 1.89. Creatinine was 1.61 yesterday and is up to 2.11 today. He did receive contrast and was also on Lasix and pioglitazone as well as lisinopril, which can all affect his kidneys. These have been held. * Renal ultrasound showed no acute abnormality and cannot exclude bilateral cortical scarring versus normal variant persistent lobulations * CR is now 2. I suspect patient may have underlying CKD. * * #Type 2 diabetes mellitus * On pioglitazone and semaglutide. Insulin sliding scale. Accu-Cheks ACHS. * Pioglitazone on hold due to worsening kidney function. Sergio permanently discontinue pioglitazone due to impaired kidney function and heart failure #BPH: On tamsulosin #Hyperlipidemia: On statin DVT prophylaxis: will place on eliquis for afib. Disposition: For discharge back to [place] once he is medically stable. Medications at Discharge Home Medications finasteride 5 mg tablet 5 mg PO DAILY 07/20/24 glipizide 5 mg tablet 5 mg PO BID 07/20/24 lisinopril 2.5 mg tablet 2.5 mg PO DAILY 07/20/24 semaglutide 2 mg/dose (8 mg/3 mL) subcutaneous pen injector (Ozempic) 2 mg subcut QWEEK 07/20/24 simvastatin 40 mg tablet 40 mg PO QPM cholesterol 07/20/24 tamsulosin 0.4 mg capsule 0.4 mg PO QHS 07/20/24 aspirin 81 mg chewable tablet 81 mg PO BREAKFAST #30 tabs 07/25/24 furosemide 40 mg tablet 40 mg PO DAILY #30 tabs 07/25/24 hydralazine 10 mg tablet 10 mg PO TID #90 tabs 07/25/24 isosorbide mononitrate 30 mg tablet,extended release 24 hr 30 mg PO DAILY #30 tabs 07/25/24 metoprolol tartrate 25 mg tablet 25 mg PO BID #60 tabs 07/25/24 Hospital Course Operations None Procedures 2-D Echocardiogram Summary of Care Provided Minutes Spent on Discharge: 55 Hospital Course: Patient is a 69-year-old male with a past medical history as outlined was admitted through the ED on 07/20/2024 with a complaint of shortness of breath for 2 weeks prior to admission. He had increase his Ozempic during that time. And noticed that he had become more short of breath. On admission in the ED he was found to be in A-fib with RVR. He was given a bolus of Cardizem in the ED and started on Cardizem drip. Chest x-ray showed no acute cardiopulmonary process. Cardiology was consulted. CTA of the chest done was negative for any evidence of PE. 2D echo showed EF of 30% with global left ventricular hypokinesis. Hospital course was complicated by right sinus creatinine likely due to HOLLY on CKD which was thought to be due to the contrast he had received. Of note his BNP was also elevated so he was treated for acute on chronic heart failure with reduced action fraction. He was diuresed with Lasix. Lasix was held and creatinine trended downwards. There is no baseline creatinine known as patient was originally from [place]. I was therefore strongly believe that patient likely had some underlying CKD. Cardiology initially wanted to do a cardiac cath but held off on this as patient wanted to go back to [place] to follow-up with his primary care doctor and follow-up with a administrative assistant data entry there. He was initially on heparin drip but was switched to p.o. Eliquis. However this was discontinued by cardiology who felt he would do well on just aspirin. Surgical Scheduler spoke to patient's PCP Dr. Ashley in [place] who requested that patient follow-up at his office and he would be seen by [facility] cardiology in [facility] and was reported to [facility] emergency department should he need acute care prior to his appointments. Patient was informed of all of this. Patient was seen and examined prior to discharge. He felt well and had no complaints. He felt ready to be discharged home. Review of systems otherwise negative. Labs and vitals reviewed. Medication reviewed and reconciled. He was given a prescription for p.o. furosemide, p.o. hydralazine and p.o. Imdur as well as aspirin and metoprolol. Prescription given for Eliquis was canceled as cardiology had discontinued the Eliquis. Physical Exam Const alert, oriented x3 and no apparent distress General Appearance: cooperative and comfortable Orientation / Consciousness: awake Exam Limitations: no limitations HEENT normocephalic, head/scalp atraumatic, hearing grossly normal bilaterally, moist oral mucous membranes and oropharynx normal Mouth: oral and palatal mucosa normal Eyes PERRL, EOMs intact bilaterally and conjunctivae normal Eyes Narrative: No icterus Neck no lymphadenopathy, supple and no JVD Neck Narrative: Lymph Lymphatic: no lymphadenopathy noted and no lymphedema noted Resp normal respiratory effort, no retractions, no use of accessory muscles and clear to auscultation bilaterally Resp Narrative: on room air. Cardio regular rate, regular rhythm, S1 normal heart sound, S2 normal heart sound and no murmurs GI normal to inspection, nondistended, normoactive bowel sounds, soft to palpation, non-tender and non-distended Extremity normal to inspection, full ROM, normal capillary refill, no clubbing, cyanosis or edema and no calf tenderness General Extremity: no tenderness to palpation of joints or extremities Skin no rashes or lesions noted General Skin Exam: no breakdown Neuro oriented x3, CN's II-XII intact bilaterally, moves all extremities, no focal motor deficits, no sensory deficits noted and deep tendon reflexes 2+ bilaterally Sensorium / Orientation: awake and alert Motor Exam: strength 5/5 throughout and general weakness Psych thought process normal, cooperative and affect normal Mood & Affect: flat affect Weight / BMI Weight Weight: 217 lb 9.54 oz Body Mass Index (BMI) 34.0 ABG / Lab / Microbiology Data 07/25/24 05:38 07/25/24 05:38 Laboratory: Laboratory Results - last 24 hr 07/25/24 05:38: WBC 5.3, RBC 3.84 L, Hgb 11.6 L, Hct 35.8 L, MCV 93.2, MCH 30.2, MCHC 32.4, RDW Std Deviation 50.6 H, RDW Coeff of Louise 14.7 H, Plt Count 233, MPV 10.1, Immature Gran % (Auto) 0.200, Neut % (Auto) 57.2, Lymph % (Auto) 32.1, [place] % (Auto) 5.6, Eos % (Auto) 4.1, Baso % (Auto) 0.8, Absolute Neuts (auto) 3.1, Absolute Lymphs (auto) 1.71, Nucleated RBC % 0, Sodium 141, Potassium 3.8, Chloride 109 H, Carbon Dioxide 25.0, Anion Gap 6, BUN 38 H, Creatinine 1.84 H, Estim Creat Clear Calc 41.22, Est GFR (MDRD) Af Amer 47 L, Est GFR (MDRD) Non-Af 39 L, BUN/Creatinine Ratio 20.7 H, Glucose 86, Calcium 9.0 Radiography Diagnostic Testing: Radiology Impression Chest X-Ray 07/24/24 09:25 IMPRESSION: Slightly prominent markings in the lower lungs could reflect early infiltrate/edema. Electronically Signed: David Coughlin MD at 11:28 EDT , D/C Instructions Discharge Diet: Low fat / Low cholesterol Discharge Activity: Return to Normal Activity Weight Bearing Status: Weight bearing as tolerated Call your doctor if you observe: Fever of 101 or Higher, Shortness of breath, Dizziness, Swelling in the ankles and Chest pain Meaningful Use Info Meaningful Use Meaningful Use Diagnoses (Choose all that apply): CHF CHF UZIEL/ARB ordered at discharge?: Yes Documented LVEF (%): 30 Ischemic Stroke Statin Dosing Therapy Reference: STATIN DOSE THERAPY REFERENCE: * Patients > 75 years receive moderate or high dose statin therapy. * Patients 75 years or YOUNGER should receive HIGH intensity statin dose unless contraindicated. You will be required to document reason for non-treatment if statin daily dose does not meet guidelines. HIGH DOSE STATIN THERAPY DAILY Atorvastatin > than or = to 40 mg Rosuvastatin > than or = to 20 mg Amlodipine + Atorvastatin > than or = to 2.5/40 mg Ezetimibe + Simvastatin 10/80 mg Simvastatin 80mg Discharge Plan Admission Admit Date/Time: 07/20/24 10:35 Primary Reason for Your Visit: afib, heart failure Attending Provider: Ofelia Larkin Primary Care Provider: ASHOK VARELA Consulting Providers: Tucker Cowan; Ofelia Larkin; John Nassar; Isai Menon Instructions Patient Instructions: AFib Preventing Stroke, ED AFIB Discharge Orders/Prescriptions Prescriptions: New furosemide 40 mg Tablet 40 mg PO DAILY Qty: 30 2RF hydralazine 10 mg Tablet 10 mg PO TID Qty: 90 2RF isosorbide mononitrate 30 mg Tablet Extended Release 24 Hr 30 mg PO DAILY Qty: 30 2RF aspirin 81 mg Tablet,Chewable 81 mg PO BREAKFAST Qty: 30 1RF metoprolol tartrate 25 mg Tablet 25 mg PO BID Qty: 60 2RF Continued simvastatin 40 mg tablet 40 mg PO QPM tamsulosin 0.4 mg capsule 0.4 mg PO QHS lisinopril 2.5 mg tablet 2.5 mg PO DAILY finasteride 5 mg tablet 5 mg PO DAILY Ozempic 2 mg/dose (8 mg/3 mL) pen injector 2 mg subcut QWEEK glipizide 5 mg tablet 5 mg PO BID Discontinued pioglitazone 45 mg tablet 45 mg PO DAILY Referrals / Follow Up: ASHOK VARELA [Other] - Within 1 Week Disposition Disposition (needs filled in before D/C Order can be placed): Home, Self Care Charges/Coding Visit Charges Inpatient E&M: 81502 Disch Hosp >30min
--- NOTE | 2024-07-25 12:17 | CASEMGMT ---
Patient has order for discharge. RN CM in to discuss needs at discharge. Patient denies needs or help at discharge. Patient had no further questions or concerns.
== END 2024-07-25 12:59 | disposition home or self-care (01) | DRG 308 ==
LOC: ED 10:47 → PCU 10:57
PROVIDERS: Internal Medicine; Emergency Provider Emergency Medicine; Visit Provider Student in an Organized Health Care Education/Training Program
DX: I48.91 Unspecified atrial fibrillation (principal); I50.21 Acute systolic (congestive) heart failure; I13.0 Hypertensive heart and chronic kidney disease with heart failure and stage 1 through stage 4 chronic kidney disease, or unspecified chronic kidney disease; N17.9 Acute kidney failure, unspecified; E11.22 Type 2 diabetes mellitus with diabetic chronic kidney disease; N18.30 Chronic kidney disease, stage 3 unspecified; I35.0 Nonrheumatic aortic (valve) stenosis; F17.210 Nicotine dependence, cigarettes, uncomplicated; E78.00 Pure hypercholesterolemia, unspecified; N40.0 Benign prostatic hyperplasia without lower urinary tract symptoms; Z79.899 Other long term (current) drug therapy; Z79.84 Long term (current) use of oral hypoglycemic drugs
CPT/HCPCS: 36415; 36600; 71045; 71275; 76770; 80048; 82803; 82962; 83036; 83880; 84443; 84484; 85025; 85610; 85730; 93005; 93306; 93880; 94002; 94003; 94668; 94762; 99285; J7030; P9047; Q9957; Q9967; A4216; C8929; J1940